=== PATIENT | female | born 1940 | race Caucasian/White ===

== ENCOUNTER 2018-02-11 20:02 | Emergency (ER) | payer MEDICARE ==
[~2018-02-11] VITALS: Ht 157.5 cm; Wt 80.0 kg
[~2018-02-11 20:02] MED LIST: AMOXICILLIN500 MG PO; ATENOLOL50 MG PO; ENALAPRIL10 MG PO; KEFLEX500 M1 PO; LASIX20 MG PO; METFORMIN500 MG PO; PRILOSEC20 MG PO; ULTRAM50 M1 PO; VALIUM5 MG PO
[2018-02-11 20:37] LABS: HEMATOCRIT 42.8 % (37.0-47.0); HEMOGLOBIN 14.2 g/dl (12.0-16.0); IMMATURE GRANULOCYTES 0.4 % (0.0-5.0); MEAN CELL VOLUME 98.2 fL CALC (80.0-100.0); MEAN CORPUSCULAR HGB 32.6 pG CALC (26.0-32.0); MEAN CORPUSCULAR HGB CONC 33.2 g/L CALC (32.0-36.0); NEUT# 5.99 thou/uL (2.00-7.15); RED BLOOD COUNT 4.36 mill/uL (4.20-5.60); RED CELL DISTRI WIDTH 14.8 % (11.5-15.5)
[2018-02-11 20:49] LABS: ALBUMIN 4.4 g/dL (3.2-5.0); ALKALINE PHOSPHATASE 111 u/l (38-126); ANION GAP 18 (6-22 (CALC)); BILIRUBIN, TOTAL 0.7 mg/dL (0.0-1.4); BUN 20 mg/dL (8-23); BUN/CREATININE RATIO 26 (12-20 (CALC)); CARBON DIOXIDE 22 mmol/l (22-30); CHLORIDE 104 mmol/l (95-108); CREATININE 0.8 mg/dL (0.5-1.0); GFR > 60 ML/MIN (>=60 (CALC)); GFR FOR AFR.AMER. > 60 ML/MIN (>=60 (CALC)); POTASSIUM 4.4 mmol/l (3.5-5.1); SGOT/AST 37 u/l (9-36); SGPT/ALT 44 u/l (11-66); SODIUM 140 mmol/l (137-146); TOTAL PROTEIN 7.9 g/dL (6.3-8.2)
[2018-02-11 21:00] LABS: ACT PARTIAL THROMBO TIME 25.9 SECONDS (20.0-32.5); D-DIMER 0.98 mg/L (0.19-0.60); INTERNATIONAL NORMALIZED RATIO 1.1 RATIO (0.7-1.3); MYOGLOBIN 31 ng/mL (0 - 62)
[2018-02-11 21:10] LABS: URINE BILIRUBIN - DIPSTICK NEGATIVE (NEGATIVE); URINE BLOOD DIPSTICK TRACE-LYSED (NEGATIVE); URINE COLOR YELLOW; URINE GLUCOSE - DIPSTICK NEGATIVE (NEGATIVE); URINE KETONE NEGATIVE (NEGATIVE); URINE NITRITE - DIPSTICK NEGATIVE (Negative); URINE PROTEIN - DIPSTICK NEGATIVE (NEG-TRACE); URINE SPECIFIC GRAVITY 1.025; URINE UROBILINOGEN - DIPSTICK 0.2 E.U./dL (0.2)
[2018-02-11 21:27] LABS: URINE CLARITY CLEAR; URINE LEUK ESTERASE MODERATE (NEGATIVE)
[2018-02-11 21:32] LABS: URINE RBC 0-2 RBC/hpf (0-5); URINE SQUAMOUS EPITHELIAL CELL FEW EPI/hpf (0-FEW)
--- NOTE | 2018-02-11 23:06 | NUR ---
BREATHING TREATMENT GIVEN USING MOUTH PEICE. BREATHING TECH. FOR GOOD DEPOSITION TO THE LUNGS.
[2018-02-11] MEDS ORDERED: COMBIVENT RESPIMAT IN (23:34)
[2018-02-11 23:37] VITALS: BP 186/77
== END 2018-02-11 23:45 | disposition home or self-care (01) ==
LOC: ED 20:02
PROVIDERS: Family Medicine
DX: J43.9 Emphysema, unspecified (principal); I10 Essential (primary) hypertension; E11.9 Type 2 diabetes mellitus without complications; Z87.891 Personal history of nicotine dependence; R06.02 Shortness of breath
CPT/HCPCS: Q9967

== ENCOUNTER → 2018-04-29 | Outpatient (REF) | payer MEDICARE ==
[~2018-04-29] MED LIST changes: +COMBIVENT RESPIMAT IN
[2018-04-29 15:40] LABS: HEMATOCRIT 43.4 % (37.0-47.0); HEMOGLOBIN 14.3 g/dl (12.0-16.0); MEAN CELL VOLUME 99.3 fL CALC (80.0-100.0); MEAN CORPUSCULAR HGB 32.7 pG CALC (26.0-32.0); MEAN CORPUSCULAR HGB CONC 32.9 g/L CALC (32.0-36.0); RED BLOOD COUNT 4.37 mill/uL (4.20-5.60)
[2018-04-29 15:58] LABS: ALBUMIN 3.9 g/dL (3.2-5.0); ALKALINE PHOSPHATASE 104 u/l (38-126); BILIRUBIN, TOTAL 0.8 mg/dL (0.0-1.4); BUN 26 mg/dL (8-23); BUN/CREATININE RATIO 33 (12-20 (CALC)); CALCULATED LDLCHOLESTEROL 47 mg/dL (62-129 (CALC)); CARBON DIOXIDE 23 mmol/l (22-30); CHLORIDE 104 mmol/l (95-108); CHOLESTEROL HDL RATIO 2.2 (<4.4 (CALC)); CREATININE 0.8 mg/dL (0.5-1.0); GFR > 60 ML/MIN (>=60 (CALC)); GFR FOR AFR.AMER. > 60 ML/MIN (>=60 (CALC)); HDL CHOLESTEROL 51 mg/dL (>=40); SGOT/AST 27 u/l (9-36); SODIUM 139 mmol/l (137-146); TOTAL CHOLESTEROL 111 mg/dl (0-199); TOTAL PROTEIN 7.2 g/dL (6.3-8.2); TOTAL TRIGLYCERIDES 66 mg/dl (30-149); VLDL CHOLESTROL 13 mg/dl (0-48 (CALC))
[2018-04-29 15:59] LABS: ANION GAP 16 (6-22 (CALC)); POTASSIUM 4.1 mmol/l (3.5-5.1)
[2018-04-29 16:26] LABS: TSH, 3RD GENERATION 2.02 uIU/mL (0.47 - 4.68)
== END | disposition home or self-care (01) ==
LOC: LAB 14:38
PROVIDERS: ATTEND Internal Medicine
DX: E11.65 Type 2 diabetes mellitus with hyperglycemia (principal)

== ENCOUNTER → 2018-10-11 | Outpatient (REF) | payer MEDICARE ==
[2018-10-11 09:32] LABS: ANION GAP 16 (6-22 (CALC)); BUN 16 mg/dL (8-23); BUN/CREATININE RATIO 24 (12-20 (CALC)); CARBON DIOXIDE 25 mmol/l (22-30); CHLORIDE 99 mmol/l (95-108); CREATININE 0.7 mg/dL (0.5-1.0); GFR > 60 ML/MIN (>=60 (CALC)); GFR FOR AFR.AMER. > 60 ML/MIN (>=60 (CALC)); SODIUM 136 mmol/l (137-146)
== END | disposition home or self-care (01) ==
LOC: LAB 07:46
PROVIDERS: ATTEND Internal Medicine
DX: I10 Essential (primary) hypertension (principal); N18.9 Chronic kidney disease, unspecified; R53.83 Other fatigue; I50.22 Chronic systolic (congestive) heart failure

== ENCOUNTER 2018-11-21 16:03 | Emergency (ER) | payer MEDICARE ==
[~2018-11-21] VITALS: Ht 157.5 cm; Wt 84.0 kg
[2018-11-21 16:21] LABS: HEMATOCRIT 42.5 % (37.0-47.0); HEMOGLOBIN 14.2 g/dl (12.0-16.0); IMMATURE GRANULOCYTES 1.1 % (0.0-5.0); MEAN CELL VOLUME 100.2 fL CALC (80.0-100.0); MEAN CORPUSCULAR HGB 33.5 pG CALC (26.0-32.0); MEAN CORPUSCULAR HGB CONC 33.4 g/L CALC (32.0-36.0); NEUT# 13.93 thou/uL (2.00-7.15); RED BLOOD COUNT 4.24 mill/uL (4.20-5.60); RED CELL DISTRI WIDTH 16.6 % (11.5-15.5)
[2018-11-21] MEDS ORDERED: LASIX 40 MG TAB40 MG PO (17:14)
[2018-11-21] MEDS ORDERED: IBUPROFEN200 MG PO (17:16)
[2018-11-21 17:28] LABS: D-DIMER 1.92 mg/L (0.19-0.60); INTERNATIONAL NORMALIZED RATIO 1.3 RATIO (0.7-1.3); PROTHROMBIN TIME 13.1 SECONDS (9.0-12.5)
[2018-11-21 17:39] LABS: ALBUMIN 3.7 g/dL (3.2-5.0); ALKALINE PHOSPHATASE 119 u/l (38-126); ANION GAP 18 (6-22 (CALC)); BILIRUBIN, TOTAL 1.9 mg/dL (0.0-1.4); BUN 23 mg/dL (8-23); BUN/CREATININE RATIO 36 (12-20 (CALC)); CARBON DIOXIDE 21 mmol/l (22-30); CHLORIDE 106 mmol/l (95-108); CREATININE 0.6 mg/dL (0.5-1.0); GFR > 60 ML/MIN (>=60 (CALC)); GFR FOR AFR.AMER. > 60 ML/MIN (>=60 (CALC)); POTASSIUM 4.6 mmol/l (3.5-5.1); SGOT/AST 36 u/l (9-36); SODIUM 140 mmol/l (137-146); TOTAL PROTEIN 6.7 g/dL (6.3-8.2)
[2018-11-21 18:11] LABS: URINE BILIRUBIN - DIPSTICK NEGATIVE (NEGATIVE); URINE BLOOD DIPSTICK NEGATIVE (NEGATIVE); URINE COLOR YELLOW; URINE GLUCOSE - DIPSTICK NEGATIVE (NEGATIVE); URINE KETONE TRACE mg/dL (NEGATIVE); URINE LEUK ESTERASE NEGATIVE (NEGATIVE); URINE NITRITE - DIPSTICK NEGATIVE (Negative); URINE PROTEIN - DIPSTICK NEGATIVE (NEG-TRACE); URINE SPECIFIC GRAVITY 1.015; URINE UROBILINOGEN - DIPSTICK 0.2 E.U./dL (0.2)
[2018-11-21 19:49] VITALS: BP 89/49
== END 2018-11-21 19:39 | disposition short-term general hospital (02) ==
LOC: ED 16:03
PROVIDERS: Emergency Medicine
DX: I21.4 Non-ST elevation (NSTEMI) myocardial infarction (principal); I11.0 Hypertensive heart disease with heart failure; I50.9 Heart failure, unspecified; J44.1 Chronic obstructive pulmonary disease with (acute) exacerbation; E11.9 Type 2 diabetes mellitus without complications
CPT/HCPCS: J1650

== ENCOUNTER 2020-06-18 14:12 | Inpatient (IN) | payer MEDICARE ==
[~2020-06-18] VITALS: Ht 157.5 cm; Wt 75.5 kg
[~2020-06-18 14:12] MED LIST changes: +IBUPROFEN200 MG PO; +LASIX 40 MG TAB40 MG PO; +METFORMIN500 M2 PO; -METFORMIN500 MG PO
[2020-06-18 15:57] LABS: HEMATOCRIT 45.3 % (37.0-47.0); HEMOGLOBIN 15.3 g/dl (12.0-16.0); MEAN CELL VOLUME 97.4 fL CALC (80.0-100.0); MEAN CORPUSCULAR HGB 32.9 pG CALC (26.0-32.0); MEAN CORPUSCULAR HGB CONC 33.8 g/dL CAL (32.0-36.0); NEUT# 11.07 thou/uL (2.00-7.15); RED BLOOD COUNT 4.65 mill/uL (4.20-5.60); RED CELL DISTRI WIDTH 13.2 % (11.5-15.5)
[2020-06-18 16:11] LABS: ALBUMIN 4.4 g/dL (3.2-5.0); ALKALINE PHOSPHATASE 103 u/l (38-126); ANION GAP 15 (6-22 (CALC)); BILIRUBIN, TOTAL 0.7 mg/dL (0.0-1.4); BUN 28 mg/dL (8-23); BUN/CREATININE RATIO 31 (12-20 (CALC)); CARBON DIOXIDE 22 mmol/l (22-30); CHLORIDE 101 mmol/l (95-108); CREATININE 0.9 mg/dL (0.5-1.0); GFR > 60 ML/MIN (>=60 (CALC)); GFR FOR AFR.AMER. > 60 ML/MIN (>=60 (CALC)); POTASSIUM 5.1 mmol/l (3.5-5.1); SGOT/AST 33 u/l (9-36); SODIUM 133 mmol/l (137-146); TOTAL PROTEIN 7.7 g/dL (6.3-8.2)
--- NOTE | 2020-06-18 16:59 | NUR ---
PT MOVED TO ER RM 4 AND TRANSFERRED TO A HOSPITAL BED. PT RESTING IN BED. VSS. DIRECTOR INSTRUCTIONAL MATERIAL READING SR 76. 2L O2 NC. BED IS IN THE LOWEST POSITION WITH WHEELS LOCKED AND CALL LIGHT IS WITHIN REACH. WIILL CONTINUE TO MONITOR.
[2020-06-18] MEDS ORDERED: SPIRONOLACT25 MG PO (17:02)
--- NOTE | 2020-06-18 19:10 | NUR ---
PT RESTING. AWAITING ADMISSION BED. PT IS ON A HOSPITAL BED. O2 @ 2 LPM NC. PT GIVEN WATER. NO C/O AT THIS TIME.
[2020-06-18 19:20] VITALS: BP 120/70
--- NOTE | 2020-06-18 23:18 | NUR ---
PT ON BSC TO VOID...MISSED THORNTON. PUREWICK TO PT. PT GIVEN WATER. DECLINED FOOD.
--- NOTE | 2020-06-19 00:12 | NUR ---
PT MEDICATED FOR PAIN. REPOSITIONED.
--- NOTE | 2020-06-19 01:05 | NUR ---
PT RESTING. NO C/O
--- NOTE | 2020-06-19 03:24 | NUR ---
PT TURNED AND POSITIONED. C/O PAIN UPON TURNING. PURE WICK NOT WORKING FOR THIS PT. PADS CHANGED. WARM BLANKET APPLIED. PT MEDICATED FOR PAIN. VSS
--- NOTE | 2020-06-19 05:13 | NUR ---
PT RESTING. NAD. CM SR.
--- NOTE | 2020-06-19 07:00 | NUR ---
PT RESTING ON STRETCHER WITH EYES OPEN. PT ASSISTED OFF OF BEDPAN BY ORIANA MONTOYA PT AOX3 SKIN WARM AND DRY. SKIN TEAR TO LFA WITH NO ACTIVE BLEEDING. PT REPORTS PAIN LEVEL 6/10 WITH MOVEMENT. ADVISED PT OF CONT WAIT IN ER. VEBRALIZED UNDERSTANDING. SIDE RAILS X 2 UP. CALL LIGHT GIVEN.
--- NOTE | 2020-06-19 07:03 | NUR ---
Patient is screened for PT intervention and no needs are identified at this time
[2020-06-19 09:00] VITALS: BP 139/88
--- NOTE | 2020-06-19 14:05 | NUR ---
CALL PLACED TO DR WOODARD OFFICE FOR CONSULT. PER MIGUEL WITH DR WOODARD OFFICE, RECOMMENDATION FOR WEIGHT BEARING TOLERATED, PAIN CONTROL ONLY, NO SURGERY NEEDED, FOLLOW UP IN CLINIC. DR SWAIN AND ALEX MONTOYA ADVISED OF FOLLOWING, PLAN FOR PT AND HOME HEALTH CONSULT
[2020-06-19] MEDS ORDERED: SPIRONOLACT50 MG PO (14:56)
[2020-06-19] MEDS ORDERED: SILDENAFIL20 MG PO (14:56)
--- NOTE | 2020-06-19 16:46 | NUR ---
REPORT GIVEN TO ESPERANZA MONTOYA.
[2020-06-19 16:55] VITALS: BP 117/59
--- NOTE | 2020-06-19 16:55 | NUR ---
PT ARRIVED TO FLOOR VIA BED ACCOMPANIED BY ED STAFF X 3. ALERT AND ORIENTED. DENIES PAIN LONG AT REST. REPORTS SEVERE SHARP PAIN W/ MOVEMENT. PAIN MANAGEMENT METHODS REVIEWED. PLAN OF CARE DISCUSSED. REPORTING OF CONCERNS ENCOURAGED. CALL LIGHT REVIEWED AND IN REACH. PUREWICK IN PLACE. O2 @ 2L VIA NC IN PLACE. NO SOB NOTED. NO TELE ORDERED. ACCUCHECK 154. FALL PRECAUTIONS REINFORCED. PT STATES UNDERSTANDING.
[2020-06-19 19:00] VITALS: BP 99/60
--- NOTE | 2020-06-19 19:30 | NUR ---
PATIENT RESTING IN BED AT THIS TIME WITH HOB SLIGHTLY ELEVATED. O2 VIA NASAL CANNULA IN PLACE AT 2LPM. PATIENT DOES WEAR O2 AT HOME. PATIENT IS AWAKE ALERT AND ORIENTEDX3. PATIENT STATES THAT SHE DID HAVE SOME RELIEF FROM MORPHINE GIVEN EARLIER. PUREWICK EXTERNAL CATH IN PLACE AT THIS TIME-NO URINE AT THIS TIME. NSALINE LOCK TO RAC INTACT AND APPEARS HEALTHY AT THIS ITME. SAFETY PRECAUTIONS REINFORCED. CALL LIGHT IN REACH. WILL CONT TO MONITOR.
--- NOTE | 2020-06-19 23:00 | NUR ---
PATIENT RESTING IN BED AT THIS TIME WITH NO COMPLAINTS. O2 VIA NASAL CANNULA IN PLACE. INCREASED TO 4LPM PER PATIENT STATING THAT SHE WEARS THE O2 AT 4LPM AT NIGHT AT HOME. PROVIDED PATIENT WITH GRAPE JUICE REQUESTED. SAFETY PRECAUTIONS REINFORCED. CALL LIGHT IN REACH. WILL CONT TO MONITOR.
--- NOTE | 2020-06-20 00:59 | NUR ---
PURE WICK LEAKING AND PATIENT C/O BURNING UPON URINATION WELL AND NO CONTROL OF URINE CAROLYN WHEN COUGHING. PATIENT WAS CLEANED UP AND LINENS WERE CHANGED. URINE SPEC OBTAINED AND SENT TO LAB. NEW PURE WICK APPLIED AND DRAINING YELLOW URINE. PATIENT RESTING IN BED WITH O2 VIA NASLA CANNULA OIN PLACE. SAFETY PRECAUTIONS REINFORCED. CALL LIGHT IN REACH. WILL CONT TO MONITOR.
[2020-06-20 01:12] LABS: URINE BILIRUBIN - DIPSTICK NEGATIVE (NEGATIVE); URINE BLOOD DIPSTICK NEGATIVE (NEGATIVE); URINE COLOR YELLOW; URINE GLUCOSE - DIPSTICK >=1000 mg/dL (NEGATIVE); URINE KETONE TRACE mg/dL (NEGATIVE); URINE LEUK ESTERASE TRACE (NEGATIVE); URINE NITRITE - DIPSTICK NEGATIVE (Negative); URINE PH 5.5 (4.5-8.0); URINE PROTEIN - DIPSTICK NEGATIVE (NEG-TRACE); URINE SPECIFIC GRAVITY 1.025; URINE UROBILINOGEN - DIPSTICK 0.2 E.U./dL (0.2)
[2020-06-20 04:00] VITALS: BP 108/60
--- NOTE | 2020-06-20 04:40 | NUR ---
PATIENT RESTING IN BED AT THIS TIME WITH O2 VIA NASAL CANNULA IN PLACE. PURE WICK IN PLACE. CALL LIGHT IN REACH. WILL CONT TO MONITOR.
[2020-06-20 10:02] LABS: HEMATOCRIT 43.1 % (37.0-47.0); HEMOGLOBIN 14.1 g/dl (12.0-16.0); MEAN CELL VOLUME 98.4 fL CALC (80.0-100.0); MEAN CORPUSCULAR HGB 32.2 pG CALC (26.0-32.0); MEAN CORPUSCULAR HGB CONC 32.7 g/dL CAL (32.0-36.0); RED BLOOD COUNT 4.38 mill/uL (4.20-5.60); RED CELL DISTRI WIDTH 13.1 % (11.5-15.5)
[2020-06-20 10:37] LABS: ANION GAP 13 (6-22 (CALC)); BUN 27 mg/dL (8-23); BUN/CREATININE RATIO 33 (12-20 (CALC)); CARBON DIOXIDE 24 mmol/l (22-30); CHLORIDE 98 mmol/l (95-108); CREATININE 0.8 mg/dL (0.5-1.0); GFR > 60 ML/MIN (>=60 (CALC)); GFR FOR AFR.AMER. > 60 ML/MIN (>=60 (CALC)); POTASSIUM 4.9 mmol/l (3.5-5.1); SODIUM 130 mmol/l (137-146)
[2020-06-20 14:55] VITALS: BP 91/56
[2020-06-20 19:00] VITALS: BP 104/55
--- NOTE | 2020-06-20 21:00 | NUR ---
PATIENT RESTING IN BED AT THIS TIME WITH O2 VIA NASAL CANNULA IN PLACE. PATIENT IS AWAKE ALERT AND ORIENTEDX3. PATIENT WITH PURE WICK IN PLACE DRAINING SALEEM URINE. SALINE LOCK TO RAC INTACT. SITE APPEARS HEALTHY AT THIS TIME. BS TONIGHT WAS 140-NO COVERAGE ORDERED. PATIENT PROVIDED WITH GINGERALE AND CRACKERS. PATIENT MEDICATED FOR GENERALIZED AND LEFT HIP PAIN WITH TYLENOL 650MG PO. SAFETY PRECAUTIONS REINFORCED. CALL LIGHT IN REACH. WILL CONT TO MONITOR.
--- NOTE | 2020-06-21 00:33 | NUR ---
PATIENT APPEARS SLEEPING AT THIS TIME WITH EYES CLOSED AND O2 VIA NASAL CANNULA IN PLACE. RESPS ARE EVEN AND U NLABORED. HOB IS SLIGHTLY ELEVATED. PURE WICK PATENT AND DRAINING SALEEM URINE. CALL L IGHT IN REACH. WILL CONT TO MONITOR.
[2020-06-21 03:40] VITALS: BP 126/68
--- NOTE | 2020-06-21 05:02 | NUR ---
PATIENT APPEARS SLEEPING AT THIS TIME WITH O2 VIA NASAL CANNULA IN PLACE. EYES ARE CLOSED AND RESP ARE EVEN AND UNLABORED. PURE WICK IN PLACE AND DRAINING SALEEM URINE. CALL LIGHT IN REACH. WILL CONT TO MONITOR.
[2020-06-21 07:44] VITALS: BP 115/63
--- NOTE | 2020-06-21 07:48 | NUR ---
Report was received from YANN. ASSESSMENT DONE. PATIENT IS A&O X3. 18 RAC THAT APPEARS HEALTHY. PURE WICK PATENT WITH SALEEM URINE. O2 AT 2L VIA NC. RESPS EVEN AND UNLABORED. PATIENT STATED SHE ONLY HAS PAIN WHEN SHE MOVES. MEDICATED PATIENT WITH MOTRIN. SETUP PATIENT FOR BREAKFAST. PATIENT DENIES ANY OTHER NEEDS AT THIS TIME. SAFETY PRECAUTIONS REINFORCED AND CALL LIGHT IN REACH.
--- NOTE | 2020-06-21 11:30 | NUR ---
PATIENT IS IN FOWLERS POSITION. PT DENIES PAIN MEDICATION AT THIS TIME. PATIENT STATED AFTER LUNCH SHE WANTS TO BATH. PATIENT DENIES ANY OTHER NEEDS AT THIS TIME. CALL LIGHT IN REACH.
--- NOTE | 2020-06-21 12:43 | NUR ---
PICTURE TAKEN FOR LEFT ELBOW SKIN TEAR. DRESSING APPLIED. VARGHESE CARE DONE AND CHANGE PURE WICK. PATIENT DENIES ANY OTHER NEEDS AT THIS TIME. CALL LIGHT IN REACH.
[2020-06-21 16:00] VITALS: BP 123/68
--- NOTE | 2020-06-21 16:00 | NUR ---
PATIENT READING HER NEWPAPER WITH NO S/S OF DISTRESS NOTED. PT DENIES ANY NEEDS AT THIS TIME. CALL LIGHT IN REACH.
--- NOTE | 2020-06-21 18:56 | NUR ---
PT IN HIGH FOWLERS IN BED TALKING ON PHONE. TV AND LIGHTS ARE ON. NO S/O DISTRESS NOTED AT THIS TIME. REPORT RECEIVED FROM DAY NURSE.
[2020-06-21 19:40] VITALS: BP 126/70
--- NOTE | 2020-06-21 20:04 | NUR ---
PT MEDICATED ORDERS PROVIDE AND ASSESSMENT COMPLETED AT THIS TIME. NO S/O DISTRESS NOTED. CALL LIGHT AT SIDE AND PT ENCOURAGED TO CALL NEEDS ARISE.
--- NOTE | 2020-06-21 23:50 | NUR ---
PT CALLED FOR ASSISTANCE WITH PUREWICK, REPLACED PUREWICK AT THIS TIME. DENIES ANY OTHER NEEDS. PT ENCOURAGED TO CALL NEEDS ARISE.
[2020-06-22 03:50] VITALS: BP 113/59
--- NOTE | 2020-06-22 04:34 | NUR ---
PT SLEEPING, NO S/O DISTRESS NOTED. CALL LIGHT AT BEDSIDE.
[2020-06-22 07:30] VITALS: BP 119/65
--- NOTE | 2020-06-22 07:30 | NUR ---
PATIENT IN BED AT THIS TIME. ALERT AND ORIENTED STATES HER PAIN LEVEL IS ONLY A 3 AT THIS TIME. PUR-WICK IS IN PLACE AND DRAINING SALEEM COLOR URINE AT THIS TIME. PATIENT SIDERAILS ARE UP CALL LIGHT NEAR. PATIENT DENIES ANY OTHER NEEDS AT THIS TIME. OUTSIDE EVENT SALES SPECIALIST DONE SEE INTERVENTIONS. SPO2 IS 97% ON R/A
[2020-06-22 09:46] LABS: HEMATOCRIT 42.5 % (37.0-47.0); IMMATURE GRANULOCYTES 1.2 % (0.0-5.0); MEAN CELL VOLUME 98.2 fL CALC (80.0-100.0); MEAN CORPUSCULAR HGB 32.3 pG CALC (26.0-32.0); MEAN CORPUSCULAR HGB CONC 32.9 g/dL CAL (32.0-36.0); NEUT# 7.08 thou/uL (2.00-7.15); RED BLOOD COUNT 4.33 mill/uL (4.20-5.60)
[2020-06-22 10:04] LABS: ANION GAP 14 (6-22 (CALC)); BUN 35 mg/dL (8-23); BUN/CREATININE RATIO 42 (12-20 (CALC)); CARBON DIOXIDE 24 mmol/l (22-30); CHLORIDE 98 mmol/l (95-108); CREATININE 0.8 mg/dL (0.5-1.0); GFR > 60 ML/MIN (>=60 (CALC)); GFR FOR AFR.AMER. > 60 ML/MIN (>=60 (CALC)); POTASSIUM 4.9 mmol/l (3.5-5.1); SODIUM 132 mmol/l (137-146)
[2020-06-22 11:15] VITALS: BP 93/55
--- NOTE | 2020-06-22 12:13 | NUR ---
PATIENT RESTING IN BED AT THIS TIME DENIES ALL NEEDS ALL SAFETY MEASURES ARE IN PLACE CALL LIGHT WITHIN REACH. PURWICK REMAINS DRAINING YELLOW URINE.
--- NOTE | 2020-06-22 15:36 | NUR ---
PATIENT RESTING IN BED AT THIS TIME. STATES HER PAIN IS A 2 OUT OF PAIN SCALE OF 0-10 CALL LIGHT IS WITHIN REACH DENIES ANY NEED FOR PAIN MEDICATION AT THIS TIME.
[2020-06-22 16:00] VITALS: BP 118/66
[2020-06-22 19:30] VITALS: BP 111/71
--- NOTE | 2020-06-22 20:08 | NUR ---
PT MEDICATED ORDERS PROVIDE AND PT CLEANED OF INCONTINIENT URINE. PUREWICK REPLACED AT THIS TIME. PT HAS PAIN UPON ROLLING AND MOVING TO LEFT HIP, BUT DENIES PAIN WHILE LAYING STILL IN THE BED. PT DENIED NEED FOR MORPHINE AT THIS TIME. CALL LIGHT AT SIDE AND PT ENCOURAGED TO CALL NEEDS ARISE.
--- NOTE | 2020-06-23 01:20 | NUR ---
BUSINESS INFORMATION MANAGER CAME TO REPORT THAT THERE WAS NO URINE OUTPUT FROM PUREWICK AND THAT THE PT WAS DRY. UPON TURNING PATIENT FOR CHECKING AND REPOSITIONING, 200CC OF VERY DARK YELLOW URINE WAS EXPRESSED STRESS INCONTINENCE. PT ABD APPEARS TO BE DISTENDED AND PO INTAKE 750MLS. PT REPORTS FEELNG PRESSURE IN BLADDER AREA. BLADDER SCAN SHOWED >999, 16FR BOBO CATHETER HAS BEEN PLACED WITH 1400 IMMEDIATE OUTPUT OF DARK YELLOW URINE. PT TOLERATED VERY WELL AND CATHETER IS NOW DRAINING CLEAR LIGHT YELLOW URINE TO GRAVITY. STAT LOCK PLACED TO RUE AND PT POSITIONINED IN THE BED FOR COMFORT. PT REPORTS FEELING IMMEDIATE RELEIF AND ABD NO LONGER APPEARS DISTENDED AT THIS TIME.
--- NOTE | 2020-06-23 03:15 | NUR ---
PT SLEEPING, NO S/O DISTRESS. BOBO CATHETER DRAINING TO GRAVITY CLEAR LIGHT YELLOW URINE.
[2020-06-23 04:40] VITALS: BP 107/62
--- NOTE | 2020-06-23 04:45 | NUR ---
PRESSER MACHINE'S IN W/PT AT THIS TIME. V/S OBTAINED, BOBO CATH DRAINING TO GRAVITY CLEAR YELLOW URINE. NO S/O DISTRESS NOTED. CALL LIGHT W/IN REACH
--- NOTE | 2020-06-23 05:01 | NUR ---
PT MEDICATED FOR PAIN IN LEFT HIP AND GENERALIZED ALL OVER 4/10 ON PAIN SCALE.
[2020-06-23 07:09] VITALS: BP 93/55
--- NOTE | 2020-06-23 08:00 | NUR ---
REPORT WAS RECEIVED FROM CASEY. PATIENT IS EATING HER BREAKFAST. ASSESSMENT DONE. PATIENT IS A&O X3. PATIENT STATED SHE ONLY HAS PAIN WHEN SHE MOVES. O2 AT 2L VIA NC. PATIENT STATED SHE HAD A BM YESTERDAY. PT REFUSED THE SURFAK. NOTIFIED PT THAT HER HOME MEDICATION SILDENAFIL NEEDS TO GET REFILL SHE ONLY HAS THREE MORE PILLS. PATIENT STATED SHE WILL TELL HER SISTER TO GET IT REFILL. BOBO IS PATIENT WITH SALEEM URINE. PATIENT DENIES ANY NEEDS AT THIS TIME. CALL LIGHT IN REACH.
--- NOTE | 2020-06-23 12:03 | NUR ---
PATIENT IS SET UP FOR LUNCH WITH NO S/S OF DISTRESS NOTED. PATIENT DENIES PAIN AT THIS TIME. CALL LIGHT IN REACH.
[2020-06-23 15:56] VITALS: BP 106/59
--- NOTE | 2020-06-23 16:05 | NUR ---
PATIENT IS RESTING IN BED WITH NO S/S OF DISTRESS NOTED. PATIENT DENIES ANY NEEDS AT THIS TIME. CALL LIGHT IN REACH.
[2020-06-23 20:00] VITALS: BP 110/52
--- NOTE | 2020-06-23 20:00 | NUR ---
Pt resting and watching TV without s/s of discomfort, call light within reach.
--- NOTE | 2020-06-24 | NUR ---
Pt sleeping comfortably.
[2020-06-24 04:00] VITALS: BP 113/57
--- NOTE | 2020-06-24 04:00 | NUR ---
Pt sleeping without S/S of discomfort.
--- NOTE | 2020-06-24 08:00 | NUR ---
PT RESTING IN BED WITHOUT COMPLAINTS ALERT AND ORIENTED MOVES ALL EXTREMETIES EXCEPT LEFT LEG COMPLAINS OF PAIN WITH MOVMENT vss PT WITHOUT COMPLAINTS OF SOB OR CHEST PAIN
[2020-06-24 08:15] VITALS: BP 118/65
--- NOTE | 2020-06-24 12:00 | NUR ---
pT COMPLAINING ABOUT BACK NT BEING WASHED RESTING IN BED WITHOUT COMPLAINTS NO CP OR SOB DENIES INCREASED PAIN PHYSICAL THERAPY NOT IN TO SEE PT TODAY GIVEN PAIN MEDS
--- NOTE | 2020-06-24 16:17 | NUR ---
PT RESTING IN BED AND IS HAPPIER NOW THAT BACK WAS WASHD DENIES CP OR SOB REMAINS WITH A DULL ACHE TO LEFT LEG UNABLE TO RATE PAIN.
[2020-06-24 20:00] VITALS: BP 107/58
--- NOTE | 2020-06-24 20:00 | NUR ---
Pt sitting in bed watching tv without S/S of discomfort, educated pt regarding the importance of stool softners when constipation is an issue.
--- NOTE | 2020-06-25 00:23 | NUR ---
When rounding pt asked for pain meds for aching R hip/leg. Pt also repositioned and is resting with minimal pain after pain med administeration.
--- NOTE | 2020-06-25 03:24 | NUR ---
Pt was repostioned to her R side with pillow positioned behind her back and between her legs.
[2020-06-25 04:00] VITALS: BP 116/65
[2020-06-25 07:33] VITALS: BP 128/74
--- NOTE | 2020-06-25 07:33 | NUR ---
PATIENT RESTING IN BED ALERT AND ORIENTED. BOBO PATENT AND DRAINING SALEEM COLOR URINE AT THIS TIME. CALL LIGHT WITHIN REACH. SIDERAILS UP X TWO. PATIENT STATED PAIN IS 2 CURRENTLY. DENIES ALL OTHER NEEDS.
[2020-06-25] MEDS ORDERED: ULTRAM50 M1 PO (11:51)
[2020-06-25 12:00] VITALS: BP 107/53
--- NOTE | 2020-06-25 16:15 | NUR ---
Discharge instructions given. Patient verbalizes understanding of same. Discharged in stable condition via Wheelchair to [facility] with *Other. All belongings sent with pt.
== END 2020-06-25 15:50 | DRG 536 ==
LOC: ED 14:12 → ED-I 15:50 → ED 16:58 → ED-I 16:59 → MS2 06-19 16:55 → UNDODEPER 06-19 16:59 → MS2 06-25 15:50
PROVIDERS: Family Medicine; Internal Medicine; Nurse Practitioner Family; ADMIT Internal Medicine; ATTEND Internal Medicine
PROC: 0T9B70Z Drainage of Bladder with Drainage Device, Via Natural or Artificial Opening (ICD-10-PCS; principal; 2020-06-23)
DX: S32.592A Other specified fracture of left pubis, initial encounter for closed fracture (principal); I10 Essential (primary) hypertension; E11.9 Type 2 diabetes mellitus without complications; I34.0 Nonrheumatic mitral (valve) insufficiency; W01.0XXA Fall on same level from slipping, tripping and stumbling without subsequent striking against object, initial encounter; Y92.009 Unspecified place in unspecified non-institutional (private) residence as the place of occurrence of the external cause; Z79.84 Long term (current) use of oral hypoglycemic drugs; Z60.2 Problems related to living alone; Z20.828 Contact with and (suspected) exposure to other viral communicable diseases
CPT/HCPCS: J1650

== ENCOUNTER 2021-09-03 09:44 | Emergency (ER) | payer MEDICARE ==
[~2021-09-03] VITALS: Ht 157.5 cm; Wt 72.0 kg
[~2021-09-03 09:44] MED LIST changes: +SILDENAFIL20 MG PO; +SPIRONOLACT25 MG PO; +SPIRONOLACT50 MG PO
[2021-09-03 10:43] LABS: HEMATOCRIT 43.1 % (37.0-47.0); HEMOGLOBIN 14.1 g/dl (12.0-16.0); IMMATURE GRANULOCYTES 1.5 % (0.0-5.0); MEAN CORPUSCULAR HGB 32.7 pG CALC (26.0-32.0); MEAN CORPUSCULAR HGB CONC 32.7 g/dL CAL (32.0-36.0); NEUT# 7.02 thou/uL (2.00-7.15); RED BLOOD COUNT 4.31 mill/uL (4.20-5.60); RED CELL DISTRI WIDTH 14.3 % (11.5-15.5)
[2021-09-03 10:52] LABS: ALBUMIN 3.5 g/dL (3.2-5.0); ALKALINE PHOSPHATASE 101 u/l (38-126); ANION GAP 17 (6-22 (CALC)); BILIRUBIN, TOTAL 0.9 mg/dL (0.0-1.4); BUN 41 mg/dL (8-23); BUN/CREATININE RATIO 26 (12-20 (CALC)); CARBON DIOXIDE 21 mmol/l (22-30); CHLORIDE 96 mmol/l (95-108); CREATININE 1.6 mg/dL (0.5-1.0); GFR 31 ML/MIN (>=60 (CALC)); GFR FOR AFR.AMER. 38 ML/MIN (>=60 (CALC)); POTASSIUM 4.9 mmol/l (3.5-5.1); SGOT/AST 37 u/l (9-36); SODIUM 129 mmol/l (137-146); TOTAL PROTEIN 7.6 g/dL (6.3-8.2)
[2021-09-03 12:05] VITALS: BP 113/61
== END 2021-09-03 12:05 | disposition home or self-care (01) ==
LOC: ED 09:44
PROVIDERS: Family Medicine
DX: R60.0 Localized edema (principal); I11.0 Hypertensive heart disease with heart failure; I50.9 Heart failure, unspecified; T50.1X6A Underdosing of loop [high-ceiling] diuretics, initial encounter; Z91.128 Patient's intentional underdosing of medication regimen for other reason; E11.9 Type 2 diabetes mellitus without complications; Z79.84 Long term (current) use of oral hypoglycemic drugs

== ENCOUNTER 2021-10-02 18:09 | Observation (INO) | payer MEDICARE ==
[~2021-10-02] VITALS: Ht 152.4 cm; Wt 71.0 kg
[~2021-10-02 18:09] MED LIST changes: +METFORMIN HYDR850 MG PO; -METFORMIN500 M2 PO; +SILDENAFIL PO; -SILDENAFIL20 MG PO
[2021-10-02 20:07] VITALS: BP 114/57
[2021-10-02 20:16] VITALS: BP 120/42
[2021-10-02 20:29] LABS: HEMATOCRIT 42.9 % (37.0-47.0); HEMOGLOBIN 13.9 g/dl (12.0-16.0); IMMATURE GRANULOCYTES 3.6 % (0.0-5.0); MEAN CELL VOLUME 100.2 fL CALC (80.0-100.0); MEAN CORPUSCULAR HGB 32.5 pG CALC (26.0-32.0); MEAN CORPUSCULAR HGB CONC 32.4 g/dL CAL (32.0-36.0); NEUT# 7.81 thou/uL (2.00-7.15); RED BLOOD COUNT 4.28 mill/uL (4.20-5.60); RED CELL DISTRI WIDTH 14.3 % (11.5-15.5)
[2021-10-02 20:46] LABS: ALBUMIN 3.3 g/dL (3.2-5.0); ALKALINE PHOSPHATASE 134 u/l (38-126); BUN 44 mg/dL (8-23); BUN/CREATININE RATIO 37 (12-20 (CALC)); CARBON DIOXIDE 18 mmol/l (22-30); CREATININE 1.2 mg/dL (0.5-1.0); GFR 43 ML/MIN (>=60 (CALC)); GFR FOR AFR.AMER. 52 ML/MIN (>=60 (CALC)); SGOT/AST 18 u/l (9-36); TOTAL PROTEIN 6.9 g/dL (6.3-8.2)
[2021-10-02 20:56] LABS: ANION GAP 21 (6-22 (CALC)); BILIRUBIN, TOTAL 0.5 mg/dL (0.0-1.4); CHLORIDE 109 mmol/l (95-108); POTASSIUM 5.5 mmol/l (3.5-5.1); SODIUM 142 mmol/l (137-146)
[2021-10-02 21:00] LABS: MYOGLOBIN 166 ng/mL (0 - 62)
--- NOTE | 2021-10-02 21:01 | NUR ---
PT RESTING IN ROOM ON MONITOR WITH FAMILY AT BEDSIDE.
[2021-10-02 21:41] VITALS: BP 149/122
--- NOTE | 2021-10-02 21:44 | NUR ---
PT RESTING COMFORTABLY WITH FAMILY AT BEDSIDE, ACCUCHECK REVEALED DECREASED BS AFTER INSULIN ADMINISTRATION. WILL CONT MONITORING.
[2021-10-02 22:01] VITALS: BP 99/52
--- NOTE | 2021-10-02 22:04 | NUR ---
REPORT GIVEN TO ORIANA MONTOYA
[2021-10-02 22:33] VITALS: BP 106/51
--- NOTE | 2021-10-02 23:00 | NUR ---
PT RESTING. NAD. VSS.
[2021-10-03] VITALS (7 sets, daily range): BP systolic 92–143; BP diastolic 48–90
--- NOTE | 2021-10-03 00:30 | NUR ---
pt resting. nad. warm blanket applied.
--- NOTE | 2021-10-03 02:20 | NUR ---
PT RESTING. VSS. PT CHANGED TO GOWN AND AMBULATORY TO HOSPITAL BED WITH ASSIST. WARM BLANKETS APPLIED. WATER GIVEN. LIGHTS DIMMED. PT IS AN ER HOLD.
--- NOTE | 2021-10-03 03:24 | NUR ---
PT RESTING. VSS.
--- NOTE | 2021-10-03 06:02 | NUR ---
PT VOIDED ON BEDPAN. WAS INCONT IN PULL UP. PT IS AWAKE BUT REMAINS GARBLED BEFORE.
--- NOTE | 2021-10-03 06:10 | NUR ---
BLOOD SUGAR CHECK 39. PT GIVEN 12 OZ OF OJ WITH 2 PACKS OF SUGAR/WILL RE-EVAL
[2021-10-03 06:58] LABS: BUN 36 mg/dL (8-23); BUN/CREATININE RATIO 37 (12-20 (CALC)); CHLORIDE 117 mmol/l (95-108); GFR 53 ML/MIN (>=60 (CALC)); GFR FOR AFR.AMER. > 60 ML/MIN (>=60 (CALC)); MAGNESIUM 1.7 mg/dL (1.6-2.3); SODIUM 147 mmol/l (137-146)
[2021-10-03 06:59] LABS: ANION GAP 11 (6-22 (CALC)); CARBON DIOXIDE 23 mmol/l (22-30); POTASSIUM 4.3 mmol/l (3.5-5.1)
--- NOTE | 2021-10-03 07:00 | NUR ---
PATIENT REPORT FROM JAN GASTELUM. PATIENT RESTING IN STRETCHER IN NAD. CALL INIGUEZ WITHIN REACH.
--- NOTE | 2021-10-03 08:30 | NUR ---
PATIENT SATURATED BED WITH URINE. SHE WAS ASSISTED TO BEDSIDE CHAIR. LINENS CHANGED.
[2021-10-03] MEDS ORDERED: DULERA1 AE1 IN (09:55)
[2021-10-03] MEDS ORDERED: BUMETANIDE1 MG PO (09:56)
--- NOTE | 2021-10-03 10:30 | NUR ---
PATIENT REMAINS ON BEDSIDE CHAIR AND DENIES ANY NEEDS. CALL INIGUEZ WITHIN REACH.
--- NOTE | 2021-10-03 11:30 | NUR ---
SPOKE TO DIAMANTE ALEJANDRE AND INFORMED HIM OF BGL OF 195, PATIENT NOT HUNGRY AND ON LY EATING SMALL AMOUNT OF FOOD. HE ADVISES TO HOLD INSULIN AT THIS TIME.
--- NOTE | 2021-10-03 15:30 | NUR ---
PATIENT SISTER AT BEDSIDE. SHE IS AWARE OF WAIT TIME FOR ROOM ASSIGNMENT.
--- NOTE | 2021-10-03 16:14 | NUR ---
REPORT RECIEVED FROM DANETTE ANDRADE
--- NOTE | 2021-10-03 16:14 | NUR ---
REPORT CALLED TO JAN SANDHU.
[2021-10-03 16:35] LABS: URINE BILIRUBIN - DIPSTICK NEGATIVE (NEGATIVE); URINE BLOOD DIPSTICK MODERATE (NEGATIVE); URINE COLOR YELLOW; URINE GLUCOSE - DIPSTICK >=1000 mg/dL (NEGATIVE); URINE KETONE NEGATIVE (NEGATIVE); URINE LEUK ESTERASE MODERATE (NEGATIVE); URINE NITRITE - DIPSTICK POSITIVE (Negative); URINE PROTEIN - DIPSTICK 30 mg/dL (NEG-TRACE); URINE SPECIFIC GRAVITY 1.025; URINE UROBILINOGEN - DIPSTICK 0.2 E.U./dL (0.2)
--- NOTE | 2021-10-03 16:51 | NUR ---
PT ARRIVED VIA STRECTHER/BED WITH O2 IN PLACE 4L VIA NC WITH JAN ANDRADE. IV: 22G RH INFUSING NS @100ML/HR. PT STATES NO PAIN. GLUCOSE CHECK UPON ARRIVING MS FLOOR: 221. AWAITING DINNER TIME TO ADMINISTER COVERAGE PER SLIDING SCALE. ASSESSMENT AND VITALS ALLOWED AT THIS TIME. PT IS A&OX3. LOWER EXTREMITY NOTED +1. FALL/SAFTEY PRECAUTIONS IN PLACE. CALL LIGHT WITHIN REACH.
[2021-10-03 16:59] LABS: URINE BACTERIA FEW hpf; URINE SQUAMOUS EPITHELIAL CELL FEW EPI/hpf (0-FEW); URINE WBC TNTC WBC/hpf (0-5)
--- NOTE | 2021-10-03 19:00 | NUR ---
RECIEVED REPORT FROM JAN THIBODEAUX
--- NOTE | 2021-10-03 20:03 | NUR ---
PT RESTING IN SEMI FOWLERS POSITION. PT IS A/OX3. ASSESSMENT COMPLETED. PT A/OX3. RESPIRATIONS EVEN AND UNLABORED ON 4L NC. PT STATES SHE WEARS O2 AT HOME BUT ONLY AT NIGHT. LUNG SOUNDS DIMINISHED. HEART RHYTHM NORMAL. BOWEL SOUNDS ACTIVE. #22G RH INFUSING WITH IVF PER ORDER, SITE PATENT. SKIN INTACT, SCATTERED BRUISING NOTED. PT DENIES OF ANY PAINS. SISTER CELL PHONE NUMBER PROVIDED PER PT REQUEST. PT DENIES OF ANY ADDITIONAL NEEDS AT THIS TIME. ALL SAFTEY PRECAUTIONS ARE IN PLACE WITH CALL LIGHT IN REACH. WILL CONTINUE TO MONITOR.
--- NOTE | 2021-10-03 21:50 | NUR ---
LOVENOX HELD PER HILL MONTIEL. MAGDALENA DARLING APPLIED. PT TOLERATED WELL
--- NOTE | 2021-10-04 00:02 | NUR ---
PT SLEEPING IN SEMI FOWLERS POSITION. RESPIRATIONS EVEN AND UNLABORED. #22G RH INFUSING WITH IVF PER ORDER, SITE PATENT. NO SIGNS OF ANY PAINS OR DISCOMFORTS AT THIS TIME.ALL SAFTEY PRECAUTIONS ARE IN PLACE WITH CALL LIGHT IN REACH. WILL CONTINUE TO MONITOR.
--- NOTE | 2021-10-04 04:06 | NUR ---
PT RESTING IN SEMI FOWLERS POSITION WATCHING TV. RESPIRATIONS EVEN AND UNLABORED ON 4L NC. #20G RH INFUSING WITH IVF PER ORDER, SITE PATENT. PT DENIES OF ANY NEEDS AT THIS TIME. ALL SAFTEY PRECAUTIONS ARE IN PLACE WITH CALL LIGHT IN REACH.
[2021-10-04 05:24] VITALS: BP 108/50
[2021-10-04 07:01] LABS: HEMATOCRIT 43.7 % (37.0-47.0); HEMOGLOBIN 13.9 g/dl (12.0-16.0); MEAN CELL VOLUME 102.6 fL CALC (80.0-100.0); MEAN CORPUSCULAR HGB 32.6 pG CALC (26.0-32.0); MEAN CORPUSCULAR HGB CONC 31.8 g/dL CAL (32.0-36.0); RED BLOOD COUNT 4.26 mill/uL (4.20-5.60); RED CELL DISTRI WIDTH 14.6 % (11.5-15.5)
[2021-10-04 07:14] LABS: ANION GAP 12 (6-22 (CALC)); BUN 24 mg/dL (8-23); BUN/CREATININE RATIO 38 (12-20 (CALC)); CARBON DIOXIDE 23 mmol/l (22-30); CHLORIDE 113 mmol/l (95-108); CREATININE 0.6 mg/dL (0.5-1.0); GFR > 60 ML/MIN (>=60 (CALC)); GFR FOR AFR.AMER. > 60 ML/MIN (>=60 (CALC)); MAGNESIUM 1.6 mg/dL (1.6-2.3); POTASSIUM 4.8 mmol/l (3.5-5.1); SODIUM 143 mmol/l (137-146)
[2021-10-04 08:58] VITALS: BP 110/57
[2021-10-04] MEDS ORDERED: HUMALOG100 UNIT/M SC (13:46)
[2021-10-04 15:00] VITALS: BP 90/50
[2021-10-04 19:00] VITALS: BP 96/64
--- NOTE | 2021-10-04 19:00 | NUR ---
RECIEVED REPORT FROM JAN HUDSON
--- NOTE | 2021-10-04 20:08 | NUR ---
PT RESTING IN LOW FOLWERS POSITION. PT IS A/OX3. RESPIRATIONS EVEN AND UNLABORED ON 4L NC, O2 92%. LUNG SOUNDS DIMINISHED. HEART RHYTHM NORMAL. BOWEL SOUNDS ACTIVE, LBM 10/04/21. PEDAL PULSES WEAK. #22G LW INFUSING WITH IVF PER ORDER, SITE PATENT. SKIN INTACT. PT DENIES OF ANY PAINS. GLUCOSE 248, COVERAGE ADMINISTERED. PT DENIES OF ANY ADDITIONAL NEEDS AT THIS TIME. ALL SAFTEY PRECAUTIONS ARE IN PLACE WITH CALL LIGHT IN PLACE. WILL CONTINUE TO MONITOR.
--- NOTE | 2021-10-05 00:44 | NUR ---
PT SLEEPING IN LOW FOLWERS POSITION. RESPIRATIONS EVEN AND UNLABORED ON 4L NC. TELE MONITORING IN PLACE. #22G LW REMAINS INFUSING WITH IVF, SITE PATENT. NO SIGNS OF ANY DISTRESS. ALL SAFTEY PRECAUTIONS ARE IN PLACE WITH CALL LIGHT IN REACH.
[2021-10-05 03:45] VITALS: BP 115/44
--- NOTE | 2021-10-05 04:20 | NUR ---
PT SLEEPING IN SEMI FOWLERS POSITION. RESPIRATIONS EVEN AND UNLABORED ON 4L NC. #22G LW REMAINS INFUSING WITH IVF PER ORDER, SITE PATENT. NO SIGNS OF ANY DISTRESS. ALL SAFTEY PRECAUTIONS ARE IN PLACE.
[2021-10-05 05:30] LABS: HEMATOCRIT 41.5 % (37.0-47.0); HEMOGLOBIN 13.3 g/dl (12.0-16.0); MEAN CELL VOLUME 101.2 fL CALC (80.0-100.0); MEAN CORPUSCULAR HGB 32.4 pG CALC (26.0-32.0); RED BLOOD COUNT 4.1 mill/uL (4.20-5.60); RED CELL DISTRI WIDTH 14.4 % (11.5-15.5)
[2021-10-05 05:53] LABS: ANION GAP 11 (6-22 (CALC)); BUN 18 mg/dL (8-23); BUN/CREATININE RATIO 30 (12-20 (CALC)); CARBON DIOXIDE 21 mmol/l (22-30); CHLORIDE 110 mmol/l (95-108); CREATININE 0.6 mg/dL (0.5-1.0); GFR > 60 ML/MIN (>=60 (CALC)); GFR FOR AFR.AMER. > 60 ML/MIN (>=60 (CALC)); MAGNESIUM 1.5 mg/dL (1.6-2.3); SODIUM 138 mmol/l (137-146)
[2021-10-05 05:59] LABS: POTASSIUM 3.8 mmol/l (3.5-5.1)
--- NOTE | 2021-10-05 08:00 | NUR ---
GOT REPORT FROM BUILDING SERVICES SUPERVISOR NURSE. CHECKED AND ASSESSED PATIENT. PATIENT IS AOX4. PATIENT STATES THAT EARLY THIS AM SHE FELT REALLY DIZZY. PATIENT DENIES ANY DIZZINESS AT THIS TIME. PATIENT'S BLOOD SUGAR 197, BLOOD PRESSURE 93/43. IV FLUIDS WAS SET AT 30ML/HR. ORDER FOR FLUIDS IS 100ML/HR. I INCREASED FLUIDS TO 100ML/HR.
[2021-10-05 08:23] VITALS: BP 93/43
--- NOTE | 2021-10-05 12:03 | NUR ---
PATIENT IS SITTING ON THE SIDE OF THE BED TALKING TO A FRIEND ON THE PHONE. PATIENT DENIES ANY HEADACHE, SOB, OR DIZZINESS. ADVISED TO CALL IF SHE NEEDS ANYTHING AT ALL.
[2021-10-05 14:38] VITALS: BP 93/43
[2021-10-05 18:48] VITALS: BP 91/47
--- NOTE | 2021-10-05 19:16 | NUR ---
PT RESTING IN BED, CALLED FOR ASSISTANCE TO BSC, PT A STAND BY ASSIST STOOD UP AND AMBULATED TO BSC WITH WALKER, PT TOLERATED WELL. NO SIGNS OF DISTRESS NOTED, RESP EVEN AND UNLABORED. PT HAD A LARGE SOFT BM, ASSISTED PT WITH PERICARE, NOTED PT HAS A PROLAPSED BLADDER. ASSISTED PT BACK TO BED, TOLERATED WELL. PT VOICES NO NEEDS OR COMPLAINTS AT THIS TIME, MEDICATED PER MAR. ASSESSMENT REVIEW COMPLETED, CALL LIGHT IN REACH,CONTINUE TO MONITOR.
--- NOTE | 2021-10-05 20:25 | NUR ---
PT RESTING IN BED, NO SIGNS OF DISTRESS NOTED, RESP EVEN AND UNLABORED. PT MEDICATED PER MAR, SNACK PROVIDED. CALL LIGHT IN REACH,CONTINUE TO MONITOR.
--- NOTE | 2021-10-06 | NUR ---
PT RESTING IN BED WITH EYES CLOSED, NO SIGNS OF DISTRESS NOTED, RESP EVEN AND UNLABORED. CALL LIGHT IN REACH,CONTINUE TO MONITOR.
[2021-10-06 03:09] VITALS: BP 114/59
--- NOTE | 2021-10-06 03:56 | NUR ---
ASSISTED PT TO BSC, VOIDED 400CC OF CLEAR YELLOW URINE, NO SIGNS OF DISTRESS NOTED, PT TOLERATED WELL. RESP EVEN AND UNLABORED. VOICES NO NEEDS OR COMPLAINTS AT THIS TIME, CALL LIGHT IN REACH,CONTINUE TO MONITOR.
[2021-10-06 06:50] VITALS: BP 99/57
--- NOTE | 2021-10-06 07:50 | NUR ---
PT SITTING ON SIDE OF BED UPON ENTERING ROOM. ASSESSMENT AND VITALS ALLOWED. IV 22G INFUSING IVF PER EMAR. PT STATES NO PAIN AT THIS TIME. O2 IN PLACE VIA NC @ 3L. FALL/SAFTEY PRECAUTION IN PLACE. CALL LIGHT WITHIN REACH.
--- NOTE | 2021-10-06 11:27 | NUR ---
PT LOOKING AT MAGAZINE UPON ENTERING ROOM. STATES NO PAIN AT THIS TIME. FALL/SAFTEY PRECAUTION IN PLACE. CALL LIGHT WITHIN REACH.
[2021-10-06 14:58] VITALS: BP 99/49
--- NOTE | 2021-10-06 17:07 | NUR ---
PT RESTING WATCHING TV. NO DISTRESS NOTED. BREATHING IS EVEN AND UNLABORED. O2 IN PLACE @3L VIA NC. IVF INFUSING WITH NO COMPLICATIONS. FALL/SAFTEY PRECAUTIONS IN PLACE. CALL LIGHT IS WITHIN REACH.
--- NOTE | 2021-10-06 19:00 | NUR ---
GOT REPORT FROM JAN DEL RIO.
--- NOTE | 2021-10-06 20:00 | NUR ---
PT SITTING IN BED IN HIGH NIXON'S POSITION. PT A&O X3. NO DISTRESS NOTED. PT DENIES PAIN AT THE MOMENT. ACTIVE BOWEL SOUNDS X4 QUADRANTS. IV SITE HEALTHY AND PATENT. BILATERAL EDEMA +2 ON LOWER EXTREMITIES. PT HELPED TO BSC. SAFETY PRECAUTIONS IN PLACE. PT EDUCATED ON THE USE OF CALL LIGHT WHEN ASSISSTANCE IS NEEDED; PT SHOWED UNDERSTANDING. CALL LIGHT WITHIN REACH.
[2021-10-06 20:20] VITALS: BP 105/51
--- NOTE | 2021-10-07 00:05 | NUR ---
PT SLEEPING. NO DISTRESS OR PAIN NOTED. SAFETY PRECAUTIONS IN PLACE. CALL LIGHT WITHIN REACH.
--- NOTE | 2021-10-07 04:15 | NUR ---
PATIENT IN BED RESTING WITH EYES CLOSED, BRATHING EVEN AND UNLABORED. NO S/S OF PAIN NOTED AT THIS TIME. CALL LIGHT AND BELONGINGS IN REACH BED IN LOWEST POSITION.
[2021-10-07 04:20] VITALS: BP 106/49
[2021-10-07 05:36] LABS: HEMOGLOBIN 11.6 g/dl (12.0-16.0); IMMATURE GRANULOCYTES 1.9 % (0.0-5.0); MEAN CELL VOLUME 100.3 fL CALC (80.0-100.0); MEAN CORPUSCULAR HGB CONC 32.9 g/dL CAL (32.0-36.0); NEUT# 7.44 thou/uL (2.00-7.15); RED BLOOD COUNT 3.52 mill/uL (4.20-5.60); RED CELL DISTRI WIDTH 14.3 % (11.5-15.5)
[2021-10-07 05:37] LABS: HEMATOCRIT 35.3 % (37.0-47.0)
[2021-10-07 05:41] VITALS: BP 106/49
[2021-10-07 05:53] LABS: ALKALINE PHOSPHATASE 93 u/l (38-126); ANION GAP 9 (6-22 (CALC)); BILIRUBIN, TOTAL 0.5 mg/dL (0.0-1.4); BUN 8 mg/dL (8-23); BUN/CREATININE RATIO 18 (12-20 (CALC)); CARBON DIOXIDE 20 mmol/l (22-30); CHLORIDE 112 mmol/l (95-108); CREATININE 0.5 mg/dL (0.5-1.0); GFR > 60 ML/MIN (>=60 (CALC)); GFR FOR AFR.AMER. > 60 ML/MIN (>=60 (CALC)); POTASSIUM 3.2 mmol/l (3.5-5.1); SGOT/AST 22 u/l (9-36); SODIUM 138 mmol/l (137-146)
[2021-10-07 05:55] LABS: TOTAL PROTEIN 4.7 g/dL (6.3-8.2)
[2021-10-07 06:24] VITALS: BP 102/61
--- NOTE | 2021-10-07 08:35 | NUR ---
ASSESSMENT AND VITALS ALLOWED AT THIS TIME. GLUCOSE CHECK THIS MORNING 104. NO COVERAGE PER SLIDING SCALE. PT REFUSED MEDICATION. STATES THEY THINK MEDICATION IS CAUSING THEM TO SWELL UNDER EYES AND HANDS. IV 226 IV INFUSING IVF PER EMAR ORDER. PT IS ALERT AND ORIENTATED X3. FALL/SAFETY PRECAUTIONS IN PLACE. CALL LIGHT IS WITHIN REACH.
[2021-10-07 10:32] VITALS: BP 95/44
--- NOTE | 2021-10-07 11:30 | NUR ---
DR. SAMUEL AT BEDSIDE DICUSSING POC
--- NOTE | 2021-10-07 13:07 | NUR ---
PT WITH FAMILY MEMBER AT BEDSIDE. GLUCOSE CHECK: 236 COVERED PER SLIDING SCALE. STATES NO PAIN AT THIS TIME. NO DISTRESS NOTED. FALL/SAFTEY PRECAUTION IN PLACE. CALL LIGHT IS WITHIN REACH.
[2021-10-07 15:26] VITALS: BP 103/50
--- NOTE | 2021-10-07 15:45 | NUR ---
PT AT BEDSIDE
--- NOTE | 2021-10-07 18:25 | NUR ---
PT SITTING IN RECLINER WATCHING TV. NO DISTRESS NOTED. IV PATENT. FALL/SAFTEY PRECAUTION INPLACE. CALL LIGHT WITHIN REACH
[2021-10-07 19:00] VITALS: BP 117/48
[2021-10-08 04:00] VITALS: BP 109/54
--- NOTE | 2021-10-08 04:14 | NUR ---
PATIENT RESTING IN BED-STATES THAT SHE HASN'T SLEPT MUCH TONIGHT. TOO LATE FOR SLEEPING PILL. MEDICATED WITH TYLENOL 650 FOR GENERALIZED DISCOMFORT. SALINE LOCK TO LEFT FOREARM INTACT. CALL LIGHT IN REACH. WILL CONT TO MONITOR.
[2021-10-08 05:57] LABS: HEMATOCRIT 34.9 % (37.0-47.0); HEMOGLOBIN 11.3 g/dl (12.0-16.0); MEAN CELL VOLUME 99.4 fL CALC (80.0-100.0); MEAN CORPUSCULAR HGB 32.2 pG CALC (26.0-32.0); MEAN CORPUSCULAR HGB CONC 32.4 g/dL CAL (32.0-36.0); RED BLOOD COUNT 3.51 mill/uL (4.20-5.60); RED CELL DISTRI WIDTH 14.3 % (11.5-15.5)
[2021-10-08 06:04] LABS: ANION GAP 9 (6-22 (CALC)); BUN 9 mg/dL (8-23); BUN/CREATININE RATIO 15 (12-20 (CALC)); CARBON DIOXIDE 21 mmol/l (22-30); CHLORIDE 108 mmol/l (95-108); CREATININE 0.6 mg/dL (0.5-1.0); GFR > 60 ML/MIN (>=60 (CALC)); GFR FOR AFR.AMER. > 60 ML/MIN (>=60 (CALC)); MAGNESIUM 1.4 mg/dL (1.6-2.3); POTASSIUM 3.3 mmol/l (3.5-5.1); SODIUM 134 mmol/l (137-146)
[2021-10-08 08:32] VITALS: BP 94/51
--- NOTE | 2021-10-08 08:33 | NUR ---
ASSESSMENT AND VITALS ALLOWED AT THIS TIME. GLUCOSE CHECK THIS MORNIN COVERED PER SLIDING SCALE SEE EMAR. IV 22G LFA SL FLUSHED WITH NO RESISTANCE. FALL/SAFTEY PRECAUTION IN PLACE. CALL LIGHT IS WITHIN REACH.
--- NOTE | 2021-10-08 11:23 | NUR ---
Patient was evaluated last PM. She presents up in the bedside chair She is able too perform sit to stand with min/ mod assist of 1. She ambulated in room and was limited by dyspnea at 2 plus as well as left hip weakness evidenced by a [place] type gait. She has 0 elevation of the RUE due to old RCT and 25% ROM of the left Am Pac is 10 indicating she would do well in ECF facility Plan is to continue monitored exercises and gait progression
--- NOTE | 2021-10-08 12:15 | NUR ---
PT EATING LUNCH AT THIS TIME. STATES NO PAIN. NO DISTRESS NOTED. FALL/SAFTEY PRECAUTION IN PLACE. CALL LIGHT IS WITHIN REACH.
[2021-10-08 15:04] VITALS: BP 94/45
--- NOTE | 2021-10-08 18:44 | NUR ---
PT SITTING ON THE RECLINER AT THIS TIME. FALL/SAFTEY PRECAUTIONS IN PLACE. IV PATENT. CALL LIGHT WITHIN REACH.
[2021-10-08 19:00] VITALS: BP 117/73
--- NOTE | 2021-10-08 21:01 | NUR ---
PATIENT SITTING UP IN BED AT THIS TIME-AWAKE ALERT AND ORIENTEDX3 WITH O2 VIA NASAL CANNULA IN PLACE-O2 SAT IS 93 AT THIS TIME. FRUSTRATED AND WANTS TO GO TO REHAB. AWAITING AVAILABILITY. GLUCOSE MONITOR WAS 167 AND PATIENT WAS COVERED WITH 2UNITS OF HUMALOG. HS SNACK WAS PROVIDED. PATIENT MEDICATED WITH SONATA 5MG PO FOR SLEEP AND WITH TYLENOL 659MG PO FOR GENERALIZED DISCOMFORT. SAFETY PRECAUTIONS REINFORCED. CALL LIGHT IN REACH. WILL CONT TO MONITOR.
--- NOTE | 2021-10-08 21:39 | NUR ---
PATIENT ADMITTED FROM ER VIA STRETCHER WITH ER STAFF IN ATTENDANCE. PATIENT IS ABLE TO TRANSFER TO BED. O2 VIA NASAL CANNULA IN PLACE WITH O2 SAT OF 98% AT THIS TIME. VS TAKEN AND RECORDED. AFEBRILE-ALERT AND ORIENTEDX3. ADMITTED FOR PNEUMONIA. PATIENT WITH NON-PRODUCTIVE COUGH. LUNGS ARE DIMINISHED THROUGHOUT. PATIENT STATES THAT SHE IS A HEAVY SMOKER AND USES NEB TREATMENTS AT HOME. ALSO STATES THAT SHE HAS BEEN LOOSING WEIGHT IN A SHORT AMT OF TIME. WAS REFERRED TO [facility] IN [place] BUT HAS NOT SEEN HIM YET. ABD IS SOFT WITH ACTIVE BS. LAST BM WAS TODAY IN THE ER. DENIES ANY DIFFICULTY WITH URINATION. NO PERIPHERAL EDEMA NOTED. PULSES ARE PALPABLE. PATIENT PROVIDED WITH HEALTHY CHOICE TURKEY DINNER AND JUICE. ORIENTED TO ROOM AND SURROUNDINGS. INSTRUCTED ON USE OF NURSE CALL LIGHT SYSTEM AND TV REMOTE. SAFETY PRECAUTIONS REINFORCED. CALL LIGHT IN REACH. WILL CONT TO MONTIOR.
--- NOTE | 2021-10-09 00:41 | NUR ---
PATIENT RESTING IN BED. STATES THAT SHE DID GET A COUPLE HOURS OF SLEEP AFTER TAKING PM MEDS. NO COMPLAINTS AT THIS TIME. SAFETY PRECAUTIONS REINFORCED.CALL LIGHT IN REACH. WILL CONT TO MONITOR.
[2021-10-09 04:00] VITALS: BP 109/58
--- NOTE | 2021-10-09 04:03 | NUR ---
PATIENT UP TO THE BSC TO VOID. O2 VIA NASAL CANNULA INPLACE. SALINE LOCK TO LEFT FOREARM INTACT. SAFETY PRECAUTIONS REINFORCED. CALL LIGHT IN REACH. WILL CONT TO MONITOR.
[2021-10-09 05:11] LABS: MEAN CELL VOLUME 99.8 fL CALC (80.0-100.0); MEAN CORPUSCULAR HGB 32.3 pG CALC (26.0-32.0); MEAN CORPUSCULAR HGB CONC 32.4 g/dL CAL (32.0-36.0); RED BLOOD COUNT 4.15 mill/uL (4.20-5.60); RED CELL DISTRI WIDTH 14.6 % (11.5-15.5)
[2021-10-09 05:13] LABS: HEMATOCRIT 41.4 % (37.0-47.0); HEMOGLOBIN 13.4 g/dl (12.0-16.0)
[2021-10-09 05:43] LABS: BUN 11 mg/dL (8-23); BUN/CREATININE RATIO 21 (12-20 (CALC)); CARBON DIOXIDE 22 mmol/l (22-30); CHLORIDE 107 mmol/l (95-108); CREATININE 0.5 mg/dL (0.5-1.0); GFR > 60 ML/MIN (>=60 (CALC)); GFR FOR AFR.AMER. > 60 ML/MIN (>=60 (CALC)); MAGNESIUM 1.6 mg/dL (1.6-2.3); SODIUM 135 mmol/l (137-146)
[2021-10-09 05:54] LABS: ANION GAP 10 (6-22 (CALC)); POTASSIUM 4.1 mmol/l (3.5-5.1)
[2021-10-09 07:55] VITALS: BP 109/67
--- NOTE | 2021-10-09 09:15 | NUR ---
GOT REPORT FROM INSTRUCTOR EXTENSION WORK NURSE, ASSESSED PATIENT. AOX4, DENIES ANY PAIN OR DISCOMFORT. PATIENT STATES THAT SHE WANTS TO LEAVE ALREADY. INFORMED HER THAT WE ARE JUST WAITING ON PLACEMENT. PATIENT VERBALIZED UNDERSTANDING.
--- NOTE | 2021-10-09 13:31 | NUR ---
S- Pt was alert and oriented. She was talking about past MD at [facility]. No complaints voiced. 0- Pt resting im bed. Bed mobility was indep without use of rails. She moved supine to sit and transferred to BS chair with supervision only. Pt reported she walks in home without 02 and uses 02 at night but after walking 30' with RW and supervision 02 sats 79%, Recoverd to low 90's with rest and DB ex Gait with 02 and RW x 30' sats in low 90's and back to 96%. LE AROM ex performed in sitting. Pt given written ex for home use. A- Pt mobility improved. [facility] 16 home with home health P- will follow isidra D/Salas.
[2021-10-09 14:00] VITALS: BP 109/67
--- NOTE | 2021-10-09 16:38 | NUR ---
IN DISCHARGE PAPERWORK MD WROTE THAT, "YOU WILL NOT BE TAKING METFORMIN 100MG TWICE A DAY FOR YOUR DIABETES." MESSAGED MD FOR CLEARIFICATION. PER MD IT SHOULD SAY, "YOU WILL NOW BE TAKING METFORMIN 100MG TWICE A DAY FOR YOUR DIABETES." MARKED ON PATIENT'S PAPERWORK THE CHANGE CLEARIFIED WITH PATIENT AND PATIENT'S SISTER. BOTH VERBALIZED UNDERSTANDING AND AGREEMENT.
--- NOTE | 2021-10-09 17:26 | NUR ---
Discharge instructions given. Patient verbalizes understanding of same. Discharged in stable condition via Wheelchair to Home with relative. All belongings sent with pt.
== END 2021-10-09 17:25 | disposition home health service (06) ==
LOC: ED 18:09 → ED-I 21:11 → ED 21:24 → ED-I 21:24 → MS2 10-03 16:06
PROVIDERS: Family Medicine; Hospitalist; Internal Medicine; Nurse Practitioner; ADMIT Internal Medicine; ATTEND Internal Medicine
DX: E11.65 Type 2 diabetes mellitus with hyperglycemia (principal); I11.0 Hypertensive heart disease with heart failure; I50.32 Chronic diastolic (congestive) heart failure; J96.11 Chronic respiratory failure with hypoxia; E11.649 Type 2 diabetes mellitus with hypoglycemia without coma; I27.20 Pulmonary hypertension, unspecified; N39.0 Urinary tract infection, site not specified; B96.20 Unspecified Escherichia coli [E. coli] as the cause of diseases classified elsewhere; J43.9 Emphysema, unspecified; I34.1 Nonrheumatic mitral (valve) prolapse; R53.1 Weakness; Z79.84 Long term (current) use of oral hypoglycemic drugs; Z60.2 Problems related to living alone; Z91.81 History of falling; Z20.822 Contact with and (suspected) exposure to COVID-19
CPT/HCPCS: G0378

== ENCOUNTER 2022-08-02 15:55 | Emergency (ER) | payer MEDICARE ==
[~2022-08-02] VITALS: Ht 157.5 cm; Wt 72.0 kg
[~2022-08-02 15:55] MED LIST changes: +BUMETANIDE1 MG PO; +DULERA1 AE1 IN; +HUMALOG100 UNIT/M SC
[2022-08-02 17:52] LABS: BASO% 1.1 % (0-3); EOS% 0.2 % (0-8); HEMATOCRIT 41.5 % (37.0-47.0); HEMOGLOBIN 14.1 g/dl (12.0-16.0); IMMATURE GRANULOCYTES 0.4 % (0.0-5.0); LYMPH% 7.8 % (15-41); MEAN CELL VOLUME 101.7 fL CALC (80.0-100.0); MEAN CORPUSCULAR HGB 34.6 pG CALC (26.0-32.0); NEUT# 3.2 thou/uL (2.00-7.15); NEUT% 69.5 % (42-76); RED BLOOD COUNT 4.08 mill/uL (4.20-5.60); RED CELL DISTRI WIDTH 15.3 % (11.5-15.5)
[2022-08-02 18:05] LABS: ALBUMIN 3.7 g/dL (3.2-5.0); ALKALINE PHOSPHATASE 104 u/l (38-126); ANION GAP 11 (6-22 (CALC)); BILIRUBIN, TOTAL 1.2 mg/dL (0.0-1.4); BUN 22 mg/dL (8-23); BUN/CREATININE RATIO 26 (12-20 (CALC)); CARBON DIOXIDE 21 mmol/l (22-30); CHLORIDE 105 mmol/l (95-108); CREATININE 0.8 mg/dL (0.5-1.0); GFR FOR AFR.AMER. > 60 ML/MIN (>=60 (CALC)); GFR OTHER RACES > 60 ML/MIN (>=60 (CALC)); POTASSIUM 4.7 mmol/l (3.5-5.1); SGOT/AST 37 u/l (9-36); SODIUM 133 mmol/l (137-146); TOTAL PROTEIN 7.2 g/dL (6.3-8.2)
[2022-08-02] MEDS ORDERED: PAXLOVID PO (21:45)
[2022-08-02 21:48] VITALS: BP 97/59
== END 2022-08-02 22:20 | disposition home or self-care (01) ==
LOC: ED 15:55
PROVIDERS: Family Medicine
DX: U07.1 COVID-19 (principal); R53.1 Weakness; R06.02 Shortness of breath; R11.2 Nausea with vomiting, unspecified; R05.9 Cough, unspecified; I10 Essential (primary) hypertension; E11.9 Type 2 diabetes mellitus without complications; Z79.84 Long term (current) use of oral hypoglycemic drugs; Z99.81 Dependence on supplemental oxygen
CPT/HCPCS: Q9967

== ENCOUNTER 2023-07-27 11:28 | Inpatient (IN) | payer MEDICARE ==
[2023-07-27] VITALS (83 sets, daily range): BP systolic 70–128; BP diastolic 36–107
[~2023-07-27] VITALS: Ht 157.5 cm; Wt 64.5 kg
[~2023-07-27 11:28] MED LIST changes: +PAXLOVID PO
--- NOTE | 2023-07-27 11:28 | NUR ---
PT TO ROOM 10 VIA EMS.
[2023-07-27] MEDS ORDERED: SILDENAFIL20 MG PO (11:45)
[2023-07-27] MEDS ORDERED: BUMETANIDE1 MG PO (11:46)
[2023-07-27] MEDS ORDERED: GLYBURIDE5 M1 PO (11:47)
[2023-07-27 12:11] LABS: BASO% 0.4 % (0-3); HEMATOCRIT 43.8 % (37.0-47.0); HEMOGLOBIN 14.5 g/dl (12.0-16.0); IMMATURE GRANULOCYTES 0.5 % (0.0-5.0); LYMPH% 5.8 % (15-41); MEAN CELL VOLUME 103.3 fL CALC (80.0-100.0); MEAN CORPUSCULAR HGB 34.2 pG CALC (26.0-32.0); MEAN CORPUSCULAR HGB CONC 33.1 g/dL CAL (32.0-36.0); MONO% 12.5 % (2-13); NEUT# 9.99 thou/uL (2.00-7.15); NEUT% 80.8 % (42-76); RED BLOOD COUNT 4.24 mill/uL (4.20-5.60); RED CELL DISTRI WIDTH 13.3 % (11.5-15.5)
[2023-07-27 12:16] LABS: ALBUMIN 3.7 g/dL (3.2-5.0); ALKALINE PHOSPHATASE 134 u/l (38-126); ANION GAP 15 (6-22 (CALC)); BUN 31 mg/dL (8-23); BUN/CREATININE RATIO 32 (12-20 (CALC)); CARBON DIOXIDE 21 mmol/l (22-30); CHLORIDE 102 mmol/l (95-108); GFR FOR AFR.AMER. > 60 ML/MIN (>=60 (CALC)); GFR OTHER RACES 53 ML/MIN (>=60 (CALC)); POTASSIUM 4.8 mmol/l (3.5-5.1); SGOT/AST 44 u/l (9-36); SODIUM 133 mmol/l (137-146); TOTAL PROTEIN 7.3 g/dL (6.3-8.2)
[2023-07-27 12:17] LABS: BILIRUBIN, TOTAL 2.5 mg/dL (0.02-1.3)
--- NOTE | 2023-07-27 12:17 | NUR ---
PT MEDICATED PER EMAR TOLERATED WELL, IV SITE INTACT; FAMILY MEMBER AT BEDSIDE, CALL INIGUEZ IN REACH.
--- NOTE | 2023-07-27 12:52 | NUR ---
REASSESSMENT OF PT VOICED PAIN 4/10 AND ABLE TO MOVE AROUND; NO DISTRESS NOTED; CALL INIGUEZ IN REACH AND HER SON AT BEDSIDE.
--- NOTE | 2023-07-27 13:48 | NUR ---
PT PLACED ON PURWIK AT THIS TIME TO OBTAIN URINE SAMPLE. PT IS NOW RESTING AND APPEARS MORE COMFORTABLE. CALL LIGHT WITHIN REACH.
--- NOTE | 2023-07-27 14:40 | NUR ---
NOTIFIED PHYSICIAN OF SOFT BP AND NO URINARY OUTPUT. ORDERS FOR IV FLUIDS RECEIVED.
--- NOTE | 2023-07-27 15:57 | NUR ---
NO URINE OUTPUT YET. EDUCATED PT ON IMPORTANCE OF TEST. PT VERBALIZED UNDERSTANDING. PURWIK REMAINS IN PLACE.
--- NOTE | 2023-07-27 16:27 | NUR ---
URINE OBTAINED VIA STRAIGHT CATH, PT TOLERATED WELL.
[2023-07-27 16:46] LABS: URINE BLOOD DIPSTICK Negative (NEGATIVE); URINE GLUCOSE - DIPSTICK 100 mg/dL (NEGATIVE); URINE KETONE Negative (NEGATIVE); URINE LEUK ESTERASE Negative (NEGATIVE); URINE NITRITE - DIPSTICK Negative (Negative); URINE PH 5.5 (4.5-8.0); URINE PROTEIN - DIPSTICK 30 mg/dL (NEG-TRACE); URINE SPECIFIC GRAVITY >=1.030
[2023-07-27 16:48] LABS: URINE COLOR Yellow; URINE RBC 0-2 RBC/hpf (0-5); URINE SQUAMOUS EPITHELIAL CELL FEW EPI/hpf (0-FEW); URINE WBC 0-2 WBC/hpf (0-5)
--- NOTE | 2023-07-27 17:10 | NUR ---
PHYSICIAN AT BEDSIDE TO DISCUSSED ADMISSION AND CENTRAL LINE PLACEMENT. PT VERBALIZED UNDERSTANDING AND SIGNED CONSENT FORMS AT THIS TIME.
--- NOTE | 2023-07-27 19:07 | NUR ---
REPORT RECEIVED FROM Salas MALDONADO RN
--- NOTE | 2023-07-27 19:19 | NUR ---
LEVO TITRATED TO 6.
--- NOTE | 2023-07-27 19:25 | NUR ---
CALL TO X RAY REGARDING PENDING XRAY TO CONFIRM PLACEMENT.
--- NOTE | 2023-07-27 20:34 | NUR ---
REPORT CALLED TO Mariangel ROSADO RN
--- NOTE | 2023-07-27 20:34 | NUR ---
HAND OFF REPORT RECEIVED FROM DONNELL
--- NOTE | 2023-07-27 20:45 | NUR ---
LVEOPHED TITRATED TO 4MCG/MIN
--- NOTE | 2023-07-27 21:50 | NUR ---
PATIENT BROUGHT TO ICU BED 8 FROM ED BY STRETCHER AT 2114, AWAKE AND ALERT, ABLE TO TRANSFER FROM STRETCHER TO BED WITH 1 ASSIST, NO C/O PAIN OR DISCOMFORT, NO S/S OF DISTRESS NOTED, RESPIRATIONS EVEN AND UNLABORED ON O2@3L BY NC, PATIENT CONTINUES ON LEVOPHED TITRATED TO 3 MC/MN, VANCOMYACIN AND MAINTENANCE FLUIDS.
--- NOTE | 2023-07-27 23:34 | NUR ---
TROPONIN AND COAG DRAWN, SENT TO LAB
[2023-07-28] VITALS (30 sets, daily range): BP systolic 94–139; BP diastolic 52–90
--- NOTE | 2023-07-28 | NUR ---
PATIENT RESTING QUIETLY WITH EYES CLOSED, RESPIRATIONS EVEN AND UNLABORED ON O2@3L BY NC, NO C/O PAIN OR DISCOMFORT, NO S/S OF DISTRESS NOTED
[2023-07-28 00:14] LABS: INTERNATIONAL NORMALIZED RATIO 1.2 RATIO (0.7-1.3); PROTHROMBIN TIME 11.9 SECONDS (9.0-12.5)
--- NOTE | 2023-07-28 02:00 | NUR ---
RESTING QUIETLY WITH EYES CLOSED, RESPIRATIONS EVEN AND UNLABORED, LIGHTS OFF FOR COMFORT.
--- NOTE | 2023-07-28 04:00 | NUR ---
RESTING QUIETLY WITH EYES CLOSED, RESPIRATIONS EVEN AND UNLABORED.
--- NOTE | 2023-07-28 05:30 | NUR ---
PATIENT UP TO BEDSIDE COMMODE
[2023-07-28 05:58] LABS: BASO% 0.2 % (0-3); HEMATOCRIT 41.9 % (37.0-47.0); HEMOGLOBIN 13.7 g/dl (12.0-16.0); IMMATURE GRANULOCYTES 0.3 % (0.0-5.0); LYMPH% 6.8 % (15-41); MEAN CELL VOLUME 105.3 fL CALC (80.0-100.0); MEAN CORPUSCULAR HGB 34.4 pG CALC (26.0-32.0); MEAN CORPUSCULAR HGB CONC 32.7 g/dL CAL (32.0-36.0); MONO% 14.9 % (2-13); NEUT# 8.49 thou/uL (2.00-7.15); NEUT% 77.8 % (42-76); RED BLOOD COUNT 3.98 mill/uL (4.20-5.60); RED CELL DISTRI WIDTH 13.3 % (11.5-15.5)
--- NOTE | 2023-07-28 06:02 | NUR ---
SITTING IN BED WATCHING TV, NO COMPLAINTS AT THIS TIME
[2023-07-28 06:15] LABS: ALBUMIN 3.4 g/dL (3.2-5.0); ALKALINE PHOSPHATASE 145 u/l (38-126); ANION GAP 16 (6-22 (CALC)); BILIRUBIN, TOTAL 1.8 mg/dL (0.02-1.3); BUN 45 mg/dL (8-23); BUN/CREATININE RATIO 43 (12-20 (CALC)); CALCULATED LDLCHOLESTEROL 59 mg/dL (62-129 (CALC)); CARBON DIOXIDE 23 mmol/l (22-30); CHLORIDE 103 mmol/l (95-108); CHOLESTEROL HDL RATIO 2.8 (<4.4 (CALC)); GFR FOR AFR.AMER. > 60 ML/MIN (>=60 (CALC)); GFR OTHER RACES 53 ML/MIN (>=60 (CALC)); HDL CHOLESTEROL 40 mg/dL (39.0-59.0); MAGNESIUM 1.8 mg/dL (1.6-2.3); POTASSIUM 4.7 mmol/l (3.5-5.1); SGOT/AST 58 u/l (9-36); SODIUM 137 mmol/l (137-146); TOTAL CHOLESTEROL 112 mg/dl (0-199); TOTAL PROTEIN 6.6 g/dL (6.3-8.2); TOTAL TRIGLYCERIDES 67 mg/dl (0-149); VLDL CHOLESTROL 13 mg/dl (0-48 (CALC))
--- NOTE | 2023-07-28 07:01 | NUR ---
RECEIVED A PHONE CALL FROM LAB [facility] AT [phone] CRITICAL PROCAL [phone], NIGHT NURSE MADE AWARE.
--- NOTE | 2023-07-28 08:00 | NUR ---
REPORT RECIEVED FROM NIGHT RN. PT ADMITTED WITH COMPLAINTS OF GENERALIZED PAIN AND COUGH. PT WAS GIVEN PAIN MEDICATION IN ER AND STARTED ON LEVOPHED GTT FOR HYPOTENSION. PT IS A/O. LEVOPHED GTT OFF SINCE 0100 THIS MORNING. PT DENIES ANY PAIN AT THIS TIME. LUNGS CLEAR UPPER ANDSLIGHT CRACKLES HEARD IN BASES. PT IS ON 4LNC WHICH IS WHAT SHE WEARS AT HOME. NO SOB NOTED. PT DOES HAVE NON-PRODUCTIVE COUGH. HEART SOUNDS S1S2. PT IS NSR ON MONITOR. BOWEL SOUNDS ACTIVE. ABDOMEN SOFT/NON-TENDER. PULSES STRONG UPPER EXTREMETIES, WEAK LOWER. +1 EDEMA BILATERAL LOWER EXTREMETIES. SKIN W/D/I. IV ACCESS R FEMORAL TRIPLE LUMEN AND 20G RAC SL. PT SITTING UP IN BED EATING BREAKFAST AND WATCHING TV. CALL LIGHT IN REACH. VSS.
--- NOTE | 2023-07-28 10:00 | NUR ---
NO CHANGES TO PT STATUS AT THIS TIME. VSS. PT SITTING IN BED TALKING WITH FAMILY AT BEDSIDE.
--- NOTE | 2023-07-28 10:30 | NUR ---
DR. HUTCHINS AT BEDSIDE TO ASSESS PT. PT HAS VISITOR AT BEDSIDE. PT CONTINUES TO DENY ANY PAIN. CALL LIGHT IN REACH. VSS.
--- NOTE | 2023-07-28 12:00 | NUR ---
PT SITTING AT EDGE OF BED EATING LUNCH AND WATCHING TV. PT DENIES ANY PAIN OR NEEDS AT THIS TIME. CALL LIGHT IN REACH. VSS.
--- NOTE | 2023-07-28 14:00 | NUR ---
PT ASSISTED TO BEDSIDE COMMODE TO VOID. PT DENIES ANY NEEDS. VSS.
--- NOTE | 2023-07-28 14:30 | NUR ---
PT AT BEDSIDE TO WORK WITH PT.
--- NOTE | 2023-07-28 16:00 | NUR ---
NO CHANGES TO PT STATUS. PT LYING IN BED WITH TV ON. CALL LIGHT AND BELONGINGS WITHIN REACH. VSS.
--- NOTE | 2023-07-28 18:00 | NUR ---
PT SITTIN IN BED EATING DINNER. NO CHANGES AT THIS TIME. CALL LIGHT IN REACH, VSS.
--- NOTE | 2023-07-28 19:45 | NUR ---
awake. denies distress. o2 cont per nc. cardiac rehabilitation specialist shows sinus rhythm. ivf infusing per rt fem site. po fluids taken well. voids per bsc. fall prcaautions cont.
[2023-07-29] VITALS (14 sets, daily range): BP systolic 117–164; BP diastolic 71–102
--- NOTE | 2023-07-29 00:01 | NUR ---
eyes closed. no distress. cashier parking lot shows sinus rhythm.
--- NOTE | 2023-07-29 03:00 | NUR ---
blood rawn & sent to lab.
[2023-07-29 03:43] LABS: BASO% 0.3 % (0-3); EOS% 0.1 % (0-8); HEMATOCRIT 38.4 % (37.0-47.0); HEMOGLOBIN 12.6 g/dl (12.0-16.0); IMMATURE GRANULOCYTES 0.3 % (0.0-5.0); LYMPH% 6.9 % (15-41); MEAN CELL VOLUME 104.3 fL CALC (80.0-100.0); MEAN CORPUSCULAR HGB 34.2 pG CALC (26.0-32.0); MEAN CORPUSCULAR HGB CONC 32.8 g/dL CAL (32.0-36.0); MONO% 11.1 % (2-13); NEUT# 11.1 thou/uL (2.00-7.15); NEUT% 81.3 % (42-76); RED BLOOD COUNT 3.68 mill/uL (4.20-5.60); RED CELL DISTRI WIDTH 13.3 % (11.5-15.5)
[2023-07-29 03:52] LABS: ALKALINE PHOSPHATASE 127 u/l (38-126); ANION GAP 12 (6-22 (CALC)); BILIRUBIN, TOTAL 1.1 mg/dL (0.02-1.3); BUN 42 mg/dL (8-23); BUN/CREATININE RATIO 54 (12-20 (CALC)); CARBON DIOXIDE 23 mmol/l (22-30); CHLORIDE 102 mmol/l (95-108); CREATININE 0.8 mg/dL (0.5-1.0); GFR FOR AFR.AMER. > 60 ML/MIN (>=60 (CALC)); GFR OTHER RACES > 60 ML/MIN (>=60 (CALC)); MAGNESIUM 1.7 mg/dL (1.6-2.3); POTASSIUM 4.6 mmol/l (3.5-5.1); SGOT/AST 39 u/l (9-36); SODIUM 133 mmol/l (137-146)
--- NOTE | 2023-07-29 05:30 | NUR ---
up to bsc then back to bed. suzy well.
--- NOTE | 2023-07-29 11:02 | NUR ---
REPORT CALLED TO JAN HO. PT WILL BE TRANSFERED TO ROOM 264.
--- NOTE | 2023-07-29 11:24 | NUR ---
PT ARRIVED VIA WC WITH FAMILY AND CHILD AND ADOLESCENT PSYCHIATRIST EMI. O2 AT 3L VIA NC PT STATES O2 DEPENDENT AT HOME. ORIENTATED PT TO ROOM AND CALL INIGUEZ SYSTEM. ASSESSMENT ALLOWED. TELE MONITOR IN PLACE, CONTINOUS MONITORING PER ED. IV PATENT/FLUSHED. FALL/SAFTY PRECAUTION IN PLACE CALL LIGHT WITHIN REACH
--- NOTE | 2023-07-29 16:00 | NUR ---
PT RESTING IN BED STATES NO NEEDS AT THIS TIMEE. FALL/SAFTEY PRECAUTION IN PLACE. CALL LIGHT WITHINN REACH.
--- NOTE | 2023-07-29 19:50 | NUR ---
ASSESSMENT IS COMPLTED: IV SITE IS FREE FROM REDNESS OR EDEMA. HR IS REG,PULSES ARE STRONG X4,ABD IS SOFT WITH ACTIVE BS. BREATH SOUNDS ARE CRACKLES, DIMINISHED, O2 @ 3LITERS WITH NC. TELE MONITOR IN PLACE.
--- NOTE | 2023-07-30 00:15 | NUR ---
PT IS RESTING IN BED WITH NO DISTRESS NOTED. IV SITE IS FREE FROM REDNESS OR EDEMA. HRT RATE IS GOING FROM 99-[address]
--- NOTE | 2023-07-30 04:10 | NUR ---
PT HAS 2 IV SITES NO DISTRESS NOTED. HAD SOME NAUSEA NO VOMITING REPORTED. CONTINUE TO OBSERVE AND MONITOR.
[2023-07-30 04:18] VITALS: BP 80/48
[2023-07-30 06:00] LABS: BASO% 0.2 % (0-3); EOS% 0.8 % (0-8); HEMATOCRIT 38.9 % (37.0-47.0); HEMOGLOBIN 13.2 g/dl (12.0-16.0); IMMATURE GRANULOCYTES 0.4 % (0.0-5.0); LYMPH% 9.3 % (15-41); MEAN CELL VOLUME 103.2 fL CALC (80.0-100.0); MEAN CORPUSCULAR HGB CONC 33.9 g/dL CAL (32.0-36.0); MONO% 15.5 % (2-13); NEUT% 73.8 % (42-76); RED BLOOD COUNT 3.77 mill/uL (4.20-5.60)
[2023-07-30 06:22] LABS: ALBUMIN 2.9 g/dL (3.2-5.0); ALKALINE PHOSPHATASE 126 u/l (38-126); ANION GAP 12 (6-22 (CALC)); BILIRUBIN, TOTAL 1.2 mg/dL (0.02-1.3); BUN 29 mg/dL (8-23); BUN/CREATININE RATIO 40 (12-20 (CALC)); CARBON DIOXIDE 23 mmol/l (22-30); CHLORIDE 101 mmol/l (95-108); CREATININE 0.7 mg/dL (0.5-1.0); GFR FOR AFR.AMER. > 60 ML/MIN (>=60 (CALC)); GFR OTHER RACES > 60 ML/MIN (>=60 (CALC)); MAGNESIUM 1.6 mg/dL (1.6-2.3); POTASSIUM 4.4 mmol/l (3.5-5.1); SGOT/AST 36 u/l (9-36); SODIUM 131 mmol/l (137-146); TOTAL PROTEIN 5.7 g/dL (6.3-8.2)
[2023-07-30 07:00] VITALS: BP 114/52
--- NOTE | 2023-07-30 08:00 | NUR ---
PT UP IN RECLINER EATING BREAKFAST. IV PATENT/FLUSHED. PT STATES NO FEELING OF NAUSEA/VOMITING. ASSESSMENT ALLOWED. UPDATED PT IN CURRENT PLAN. RESPIRATIONS ARE EVEN AND UNLABORED. BOWEL SOUNDS ACTIVE X4. SKIN INTACT. FALL/SAFTEY PRECAUTION IN PLACE. CALL LIGHT WITHIN REACH
[2023-07-30 10:58] VITALS: BP 121/65
--- NOTE | 2023-07-30 12:30 | NUR ---
PT RESTING IN RECLINER. STATES NO FEELINGS OF N/V. IV PATENT/FLUSHED. STATES NO NEEDS AT THIS TIME. O2 IN PLACFE VIA NC AT 3L FALL/SAFTEY PRECAUTION IN PLACE. CALL LIGHT WITHIN REACH
--- NOTE | 2023-07-30 12:30 | NUR ---
PT ARRIVED VIA STRETCHER SYSTEMS ADMINISTRATION ANALYST BED SIDE REPORT RECIEVED. REORIENTATED PT TO ROOM AND CALL INIGUEZ SYSTEM. PT ABLE TO AMBULATE VIA STANDY ASSIST FROM STRETCHER TO BED. MEAL PROVIDED. IVF INFUSING PER EMAR TELE MONITOR IN PLACE, CONTINOUS MONITORING PER ED FALL/SAFTEY PRCAUTION IN PLACE, CALL LIGHT WITHIN REACH.
--- NOTE | 2023-07-30 15:06 | NUR ---
PT TRANSPORTED TO US WITH [facility]OL[facility]TE[facility] WITH O2 IN PLACE
[2023-07-30 15:19] VITALS: BP 125/63
[2023-07-30] MEDS ORDERED: OMNICEF300 M1 PO (15:40)
[2023-07-30] MEDS ORDERED: REGLAN10 MG PO (16:23)
--- NOTE | 2023-07-30 17:09 | NUR ---
GLUCOSE 149 NO COVERAGE NEEDED PER SLIDING SCALE
--- NOTE | 2023-07-30 17:30 | NUR ---
CENTRAL LINE REMOVED PER [facility] POLICY PT TOLERATED WELL
--- NOTE | 2023-07-30 17:45 | NUR ---
TELE REMOVED SET AT NURSES STATION
--- NOTE | 2023-07-30 18:45 | NUR ---
Discharge instructions given. Patient verbalizes understanding of same. Discharged in stable condition via Wheelchair to Home with staff. All belongings sent with pt.
== END 2023-07-30 18:46 | DRG 312 ==
LOC: ED 11:28 → ICU 17:12 → MS2 18:22
PROVIDERS: Emergency Medicine; Student in an Organized Health Care Education/Training Program; ADMIT Student in an Organized Health Care Education/Training Program; ATTEND Student in an Organized Health Care Education/Training Program
PROC: 06HY33Z Insertion of Infusion Device into Lower Vein, Percutaneous Approach (ICD-10-PCS; principal; 2023-07-27)
PROC: 3E043XZ Introduction of Vasopressor into Central Vein, Percutaneous Approach (ICD-10-PCS; 2023-07-27)
DX: I95.2 Hypotension due to drugs (principal); I50.32 Chronic diastolic (congestive) heart failure; J96.11 Chronic respiratory failure with hypoxia; T39.8X5A Adverse effect of other nonopioid analgesics and antipyretics, not elsewhere classified, initial encounter; T40.2X5A Adverse effect of other opioids, initial encounter; I11.0 Hypertensive heart disease with heart failure; E86.0 Dehydration; J43.9 Emphysema, unspecified; E11.9 Type 2 diabetes mellitus without complications; M17.0 Bilateral primary osteoarthritis of knee; I34.0 Nonrheumatic mitral (valve) insufficiency; I27.20 Pulmonary hypertension, unspecified; Y92.238 Other place in hospital as the place of occurrence of the external cause; Z79.84 Long term (current) use of oral hypoglycemic drugs; Z99.81 Dependence on supplemental oxygen; Z91.81 History of falling; Z20.822 Contact with and (suspected) exposure to COVID-19
CPT/HCPCS: J0692; J1650

== ENCOUNTER 2023-08-04 18:45 | Observation (INO) | payer MEDICARE ==
[2023-08-04] VITALS (21 sets, daily range): BP systolic 93–128; BP diastolic 57–83
[~2023-08-04] VITALS: Ht 157.5 cm; Wt 64.0 kg
[~2023-08-04 18:45] MED LIST changes: +GLYBURIDE5 M1 PO; +OMNICEF300 M1 PO; +REGLAN10 MG PO; +SILDENAFIL20 MG PO
--- NOTE | 2023-08-04 19:00 | NUR ---
PT AN EXTREMELY HARD TRANSFER FROM THE TRUCK TO THE WHEELCHAIR. PT IS NOT ABLE TO WALK. SHE IS ALERT AND OX4. PT WAS HEAVLY SATURATEDWITH URINE IN HER ATTENDS
--- NOTE | 2023-08-04 19:15 | NUR ---
PATIENT PLACED ON 4L. PER PATIENT AND DAUGHTER AT BEDSIDE PATIENT WEARS BASELINE 4L
--- NOTE | 2023-08-04 19:35 | NUR ---
PATIENT WASHED UP, NEW GOWN AND SHEETS PLACED. LARGE INCONTINENT EPISODE. PATIENT PLACED ON PUREWICK.
[2023-08-04 19:40] LABS: BASO% 0.4 % (0-3); EOS% 0.3 % (0-8); HEMOGLOBIN 14.4 g/dl (12.0-16.0); IMMATURE GRANULOCYTES 1.5 % (0.0-5.0); MEAN CELL VOLUME 101.4 fL CALC (80.0-100.0); MEAN CORPUSCULAR HGB 34.8 pG CALC (26.0-32.0); MEAN CORPUSCULAR HGB CONC 34.3 g/dL CAL (32.0-36.0); MONO% 15.4 % (2-13); NEUT# 10.99 thou/uL (2.00-7.15); NEUT% 72.4 % (42-76); RED BLOOD COUNT 4.14 mill/uL (4.20-5.60)
[2023-08-04 19:49] LABS: ALKALINE PHOSPHATASE 144 u/l (38-126); ANION GAP 14 (6-22 (CALC)); BILIRUBIN, TOTAL 1.4 mg/dL (0.02-1.3); BUN 21 mg/dL (8-23); BUN/CREATININE RATIO 24 (12-20 (CALC)); C-REACTIVE PROTEIN 5.4 mg/dL (0-0.9); CARBON DIOXIDE 26 mmol/l (22-30); CHLORIDE 94 mmol/l (95-108); CREATININE 0.9 mg/dL (0.5-1.0); GFR FOR AFR.AMER. > 60 ML/MIN (>=60 (CALC)); GFR OTHER RACES 60 ML/MIN (>=60 (CALC)); POTASSIUM 4.5 mmol/l (3.5-5.1); SGOT/AST 53 u/l (9-36); SODIUM 129 mmol/l (137-146)
[2023-08-04 19:56] LABS: ALBUMIN 3.9 g/dL (3.2-5.0); TOTAL PROTEIN 7.5 g/dL (6.3-8.2)
--- NOTE | 2023-08-04 20:30 | NUR ---
PATIENT PROVIDED WITH URINAL AND NOTIFIED OF PENDING URINE SPECIMEN
--- NOTE | 2023-08-04 22:32 | NUR ---
PATIENT PLACED ON TELE 13. AWAITING ROOM
--- NOTE | 2023-08-04 23:10 | NUR ---
REPORT GIVEN TO [place] AGRAWAL RN
[2023-08-05] VITALS (13 sets, daily range): BP systolic 95–117; BP diastolic 35–73
--- NOTE | 2023-08-05 01:20 | NUR ---
PT TO ROOM 277.
--- NOTE | 2023-08-05 01:28 | NUR ---
pt glucose was 126 @0130
--- NOTE | 2023-08-05 02:23 | NUR ---
RECEIVED REPORT FROM ED NURSE NICCI, PATIENT TRANSPORTED VIA BED, PATIENT ON O2 @ 3LPM VIA NC, PATIENT STATED SHE IS O2 DEPENDENT AT HOME, PATIENT ALERT ORIENTED X 3 ABLE TO MAKE NEEDS KNOWN, PATIENT DENIES PAIN, BLOOD GLUCOSE OBTAINES 126, PATINET IV ON RAC G 20 PATENT FLUSHES WELL, HOOKED ON TELEMETRY # 13, CALL LIGHT IN REACH.PATINET ORIENTED TO ROOM AND CALL LIGHT SYSTEM.
--- NOTE | 2023-08-05 03:58 | NUR ---
PATIENT RESTING IN BED, EYES CLOSED REMAINS ON O2 @ 3LPM VIA NC, BREATHING UNLBAORED CALL LIGHT IN REACH.
[2023-08-05 05:16] LABS: BASO% 0.4 % (0-3); EOS% 1.6 % (0-8); HEMATOCRIT 36.2 % (37.0-47.0); IMMATURE GRANULOCYTES 2.4 % (0.0-5.0); LYMPH% 12.2 % (15-41); MEAN CELL VOLUME 100.8 fL CALC (80.0-100.0); MEAN CORPUSCULAR HGB 34.3 pG CALC (26.0-32.0); MONO% 13.4 % (2-13); NEUT# 8.7 thou/uL (2.00-7.15); RED BLOOD COUNT 3.59 mill/uL (4.20-5.60)
[2023-08-05 05:21] LABS: HEMOGLOBIN 12.3 g/dl (12.0-16.0)
[2023-08-05 05:41] LABS: ALBUMIN 2.6 g/dL (3.2-5.0); ALKALINE PHOSPHATASE 100 u/l (38-126); ANION GAP 9 (6-22 (CALC)); BILIRUBIN, TOTAL 1.2 mg/dL (0.02-1.3); BUN 23 mg/dL (8-23); BUN/CREATININE RATIO 25 (12-20 (CALC)); CARBON DIOXIDE 28 mmol/l (22-30); CHLORIDE 95 mmol/l (95-108); CREATININE 0.9 mg/dL (0.5-1.0); GFR FOR AFR.AMER. > 60 ML/MIN (>=60 (CALC)); GFR OTHER RACES 60 ML/MIN (>=60 (CALC)); MAGNESIUM 1.4 mg/dL (1.6-2.3); POTASSIUM 4.1 mmol/l (3.5-5.1); SGOT/AST 28 u/l (9-36); SODIUM 128 mmol/l (137-146); TOTAL PROTEIN 5.5 g/dL (6.3-8.2)
[2023-08-05 05:41] LABS: URINE BILIRUBIN - DIPSTICK Negative (NEGATIVE); URINE BLOOD DIPSTICK Trace-intact (NEGATIVE); URINE GLUCOSE - DIPSTICK Negative (NEGATIVE); URINE KETONE Negative (NEGATIVE); URINE LEUK ESTERASE Trace (NEGATIVE); URINE NITRITE - DIPSTICK Negative (Negative); URINE PH 5.5 (4.5-8.0); URINE PROTEIN - DIPSTICK Negative (NEG-TRACE); URINE SPECIFIC GRAVITY 1.015; URINE UROBILINOGEN - DIPSTICK 0.2 E.U./dL (0.2)
[2023-08-05 05:54] LABS: URINE COLOR Yellow
--- NOTE | 2023-08-05 08:00 | NUR ---
Bedside report received from off going nurse. Patient alert and oriented and able to make needs known. Patient assisted to bedside commode with assist of 1 staff. Denies pain or discomfort at this time. Continues on IV fluids. Respirations even and unlabored on oxygen via nasal cannula. Safety measures in place. Call light within reach.
--- NOTE | 2023-08-05 10:59 | NUR ---
S: MICHI JAMA is a 82 F who presents with polyarthralgia, hyponatremia and weakness. She has a history of arthritis, diabetes, hypertension and chicken pox/herpes. All medications in patient's chart were reviewed. O: VS: BP: 100/58 mmHg, P: 81 bpm, RR: 19 bpm, T: 96.7 F W: 65.3 kg, HT: 62 in, Scr: 0.9 mg/dl , CrCl: 39.1 ml/min A: Blood culture is pending. P: Patient is on cefepime 1 gm IV Q12H. Vancomycin ordered for pharmacy to dose. Continue Vancomycin 1 gm IV Q24H. Vancomycin trough is drawn before the dose on 08/06/23 @2230. Vancomycin goal trough is between <10-15 mcg/ml>. Pharmacy will follow and or advise on antibiotics use as needed.
--- NOTE | 2023-08-05 11:36 | NUR ---
Patient currently sitting up on edge of bed talking to sister at bedside. Denies pain or discomfort. Respirations even and unlabored. Safety measures in place.
--- NOTE | 2023-08-05 14:16 | NUR ---
Patient resting in bed. Respirations even and unlabored on O2 via nasal cannula. Denies pain or discomfort at this time. Safety measures in place. Call ligth within reach.
--- NOTE | 2023-08-05 17:25 | NUR ---
Patient is sitting up in recliner chair in room. Denies pain or discomfort at this time. IV fluids continue. Safety measures inplace. Call light within reach.
--- NOTE | 2023-08-05 19:08 | NUR ---
Bedside report given to oncoming nurse. Patient sitting up in recliner chair. IV access noted to be dislodged by patient. Oncoming nurse made aware. Patient denies pain or discomfort at this time. Call light within reach.
--- NOTE | 2023-08-05 19:30 | NUR ---
NE3W IV INSERTED G 22 IV PATENT FLUSHES WELL/
--- NOTE | 2023-08-05 20:00 | NUR ---
RECEIVED REPORT FROM LISA RICHTER IN BED, HOOKED ON O2 @ 3LPM VIA NC, STATED MUCH FEELS MUCH BETTER TODAY, DENIES PAIN AT THIS TIME, HOOKED ON TELEMETRY SR 92, NEW IV INSERTED ON LFA G 22 PATENT FLSUHES WELL, CALL LIGHT IN REACH.
--- NOTE | 2023-08-06 00:16 | NUR ---
DUE VANCOMYCIN CURRENTLY INFUSING PATINET REMAINS ON O2 AT 3LPM VIA NC, NOT IN DISTRESS, CALL LIGHT IN REACHE.
--- NOTE | 2023-08-06 03:32 | NUR ---
PATIENT AWAKEN, TURNED OFF TV, PATINET NOT IN DSITRESS, REMAINS ON O2 @ 3LPM VIA NC, CALL LIGHT IN REACH.
[2023-08-06 04:04] VITALS: BP 121/62
[2023-08-06 06:49] VITALS: BP 113/70
[2023-08-06 07:12] LABS: BASO% 0.8 % (0-3); EOS% 2.2 % (0-8); HEMATOCRIT 37.1 % (37.0-47.0); HEMOGLOBIN 12.8 g/dl (12.0-16.0); IMMATURE GRANULOCYTES 0.8 % (0.0-5.0); LYMPH% 10.6 % (15-41); MEAN CELL VOLUME 101.4 fL CALC (80.0-100.0); MEAN CORPUSCULAR HGB CONC 34.5 g/dL CAL (32.0-36.0); MONO% 12.4 % (2-13); NEUT# 8.61 thou/uL (2.00-7.15); NEUT% 73.2 % (42-76); RED BLOOD COUNT 3.66 mill/uL (4.20-5.60); RED CELL DISTRI WIDTH 12.8 % (11.5-15.5)
--- NOTE | 2023-08-06 07:19 | NUR ---
pt aox3, states she "feels better this morning" sitting up on side of the bed at this time, no complaints of pain, lungs clear, bp WNL AT THIS TIME.
[2023-08-06 07:45] LABS: ALBUMIN 2.7 g/dL (3.2-5.0); ALKALINE PHOSPHATASE 112 u/l (38-126); ANION GAP 10 (6-22 (CALC)); BILIRUBIN, TOTAL 0.8 mg/dL (0.02-1.3); BUN 20 mg/dL (8-23); BUN/CREATININE RATIO 28 (12-20 (CALC)); CARBON DIOXIDE 24 mmol/l (22-30); CHLORIDE 101 mmol/l (95-108); CREATININE 0.7 mg/dL (0.5-1.0); GFR FOR AFR.AMER. > 60 ML/MIN (>=60 (CALC)); GFR OTHER RACES > 60 ML/MIN (>=60 (CALC)); MAGNESIUM 1.5 mg/dL (1.6-2.3); POTASSIUM 4.1 mmol/l (3.5-5.1); SGOT/AST 24 u/l (9-36); SODIUM 131 mmol/l (137-146); TOTAL PROTEIN 5.6 g/dL (6.3-8.2)
[2023-08-06 10:45] VITALS: BP 108/59
[2023-08-06 11:36] VITALS: BP 108/59
[2023-08-06 15:16] VITALS: BP 121/67
[2023-08-06] MEDS ORDERED: PREDNISONE20 MG PO (15:31)
[2023-08-06 15:42] VITALS: BP 121/67
--- NOTE | 2023-08-06 16:49 | NUR ---
REPORT CALLED/GIVEN TO VLAERIE AT [facility].
--- NOTE | 2023-08-06 18:06 | NUR ---
REVIEWED DISCHARGE INSTRUCTIONS WITH PT AND SON AT BEDSIDE, DC'D IV, TELE MONITOR DC'D AND PLACED IN BASKET AT DESK.
== END 2023-08-06 18:38 ==
LOC: ED 18:45 → ED-I 21:46 → ED 21:47 → MS2 21:47
PROVIDERS: Family Medicine; ADMIT Student in an Organized Health Care Education/Training Program; ATTEND Student in an Organized Health Care Education/Training Program
DX: M25.512 Pain in left shoulder (principal); M25.511 Pain in right shoulder; M25.59 Pain in other specified joint; E87.1 Hypo-osmolality and hyponatremia; M19.012 Primary osteoarthritis, left shoulder; M19.011 Primary osteoarthritis, right shoulder; I11.0 Hypertensive heart disease with heart failure; I50.32 Chronic diastolic (congestive) heart failure; E11.9 Type 2 diabetes mellitus without complications; I34.0 Nonrheumatic mitral (valve) insufficiency; I27.20 Pulmonary hypertension, unspecified; J43.9 Emphysema, unspecified; D72.829 Elevated white blood cell count, unspecified; Z79.84 Long term (current) use of oral hypoglycemic drugs
CPT/HCPCS: J0692; J1650; J3475